=== PATIENT | female | born 1990 | race Caucasian/White ===

== ENCOUNTER 2022-08-28 19:17 | Inpatient (IN) ==
--- NOTE | 2022-08-28 20:38 | XRay Report ---
XR chest 1V portable HISTORY: 32 years-old Female Sepsis acute sepsis COMPARISON: None TECHNIQUE: Portable AP view of the chest FINDINGS: Cardiac silhouette is enlarged. Interstitial coarsening with ill-defined bilateral airspace opacities . No pneumothorax or pleural effusion. The bones appear normal. IMPRESSION: Bilateral mixed interstitial and alveolar opacities are suggestive of multifocal pneumoni a. ACT 112: Negative or not required by law. The above report was generated using voice recognition software. It may contain grammatical, syntax o r spelling errors. Electronically signed by: Tyrell Rios M.D. 08/28/2022 8:36 PM
[2022-08-28 20:50] LABS: Basophils # (auto) 0.01 K/uL (0-0.2); Basophils % (auto) 0.1 %; Eosinophils # (auto) 0.01 K/uL (0-0.50); Eosinophils % (auto) 0.1 %; Hematocrit (blood only) 29.1 % (34.1-44.9); Hemoglobin 9.7 g/dl (12.0-16.0); Immature Granulocytes # (auto) 0.04 K/uL (0.00-0.02); Immature Granulocytes % (auto) 0.5 %; Lymphocytes % (auto) 7.7 %; Mean Corpuscular Hemoglobin 26.6 pg (25.0-34.0); Mean Corpuscular Hgb Conc 33.3 g/dL (32.0-36.0); Mean Corpuscular Volume 79.9 fL (80.0-100.0); Monocytes # (auto) 0.42 K/uL (0.24-0.82); Monocytes % (auto) 5.4 %; Neutrophils # (auto) 6.67 K/uL (1.4-6.5); Neutrophils % (auto) 86.2 %; Platelet Count 278 K/uL (130-400); RDW Coefficient of Variation 14.6 % (11.5-14.5); RDW Standard Deviation 42.5 fL (36.4-46.3); Red Blood Count 3.64 M/uL (3.93-5.22); White Blood Count 7.75 K/ul (4.8-10.8)
[2022-08-28 21:01] LABS: INR 1.1 (0.9-1.1); Partial Thromboplastin Ratio 1.3; Partial Thromboplastin Time 36.9 Seconds (21.0-31.0); Prothrombin Time 11.4 Seconds (9.0-12.0)
[2022-08-28 21:15] LABS: Alanine Aminotransferase 141 U/L (7-52); Albumin Level 3.5 gm/dl (3.4-5.0); Alkaline Phosphatase 182 U/L (34-104); Anion Gap 9 (3-11); Aspartate Aminotransferase 149 U/L (13-39); Bilirubin,Total 0.9 mg/dl (0.2-1.0); Blood Urea Nitrogen 18 mg/dl (6-23); Calcium 8.8 mg/dl (8.5-10.1); Carbon Dioxide 25 mmol/L (21-32); Chloride 95 mmol/L (98-107); Est GFR (African American) 126.6 ml/min; Est GFR (Non-African American) 109.3 ml/min; Globulin 3.6 gm/dl (2.5-4.0); Glucose 120 mg/dl (70-99(Fasting)); Magnesium 1.9 mg/dl (1.7-2.4); Potassium 3.9 mmol/L (3.5-5.1); Sodium 129 mmol/L (136-145); Total Protein 7.1 gm/dl (6.0-8.3)
[2022-08-28 21:18] LABS: Troponin I High Sensitivity 17.7 pg/ml (0-14)
[2022-08-28 21:32] LABS: Influenza A virus by PCR Negative (Neg); Influenza B virus by PCR Negative (Neg); RSV by PCR Negative (Neg); SARS CoV2 RNA(COVID-19) InHosp NEGATIVE (Negative)
[2022-08-28] MEDS ORDERED: VANCOMYCIN HCL 2,000 MG in SODIUM CHLORIDE 0.9% 500 ML IV ONE (22:00)
[2022-08-28] MEDS ORDERED: CEFEPIME 2,000 MG/20 ML VIAL IV STA (22:00)
[2022-08-28] MEDS ORDERED: VANCOMYCIN CONSULT ACTIVE PRN (22:00)
--- NOTE | 2022-08-28 22:07 | Emergency Department Note ---
History of Present Illness General Chief complaint: Fever Stated complaint: Weakness Time Seen by Provider: 08/28/22 21:40 History of Present Illness Maximum Pain Intensity: 6 32-year-old female presents to the ED with a chief complaint of a fever. The patient states that she was admitted to [facility] in [place] about 2 weeks ago with a left leg infection and endocarditis. She states that she was there for about 5 days on IV antibiotics and then left AGAINST MEDICAL ADVICE as she states that they were not managing her pain. She does have a history of IV drug abuse and polysubstance abuse. The patient states that after this she went to a local detox facility in [facility] and then came down here today to be admitted for a longer term detox for 28 days at [facility]. On her intake there, she had a fever of 103. The patient was transferred here for further evaluation based on her recent history. The patient does complain of a little neck pain and left shoulder pain. She states that her left leg seems to be much better. Denies any respiratory complaints such as shortness of breath or cough. No urinary symptoms. No vomiting or diarrhea. Home Medications Medication Instructions Recorded Confirmed Type acetaminophen 500 mg capsule 1,000 mg PO Q8 PRN as directed 08/28/22 08/28/22 History (Mapap (acetaminophen)) buprenorphine 8 mg-naloxone 2 mg 1 film buccal TID 08/28/22 08/28/22 History sublingual film (Suboxone) clonidine HCl 0.1 mg tablet 0.1 mg PO TID PRN as directed 08/28/22 08/28/22 History diphenhydramine HCl 25 mg capsule 25 mg PO Q8 PRN as directed 08/28/22 08/28/22 History (Banophen) hydroxyzine HCl 25 mg tablet 25 mg PO TID PRN as directed 08/28/22 08/28/22 History multivitamin 1 tab PO DAILY 08/28/22 08/28/22 History naloxone 4 mg/actuation nasal spray 4 mg intranasal UD PRN over dose 08/28/22 08/28/22 History nicotine 21 mg/24 hr daily 21 mg transdermal UD 08/28/22 08/28/22 History transdermal patch Allergies Allergy/AdvReac Type Severity Reaction Status Date / Time No Known Allergies Allergy Unverified 08/28/22 22:06 Past Med/Surg History Medical History Endocarditis Polysubstance abuse Social History Smoking Status: Unknown if ever smoked Preferred Language: French Feels Safe at Home: Yes Review of Systems A total of 10 systems reviewed and were otherwise negative Physical Exam Vital Signs Vital Signs - 24 hr 08/28/22 19:24 08/28/22 21:48 Temperature 37.2 C 37 C Temperature Source Oral Oral Pulse Rate 97 H Pulse Rate [Finger] 84 Respiratory Rate 16 18 Respiratory Effort / Characteristics Non-Labored Spontaneous Respiratory Depth Normal Blood Pressure 111/65 Blood Pressure [Right Arm] 116/64 Blood Pressure Mean 80 Blood Pressure Mean [Right Arm] 81 Pulse Oximetry 97 99 Oxygen Delivery Method Room Air Room Air Sepsis Recent Fever Within 48 Hours Yes Sepsis New/Unexplained Change in Mental Status N/A Sepsis Action Taken by Nursing No Action Required CONSTITUTIONAL/VITAL SIGNS: Reviewed / noted above. GENERAL: Non-toxic in appearance. INTEGUMENTARY: Warm, dry, and [employer]. HEAD: Normocephalic. EYES: without scleral icterus or trauma. ENT/OROPHARYNX: clear and moist. LYMPHADENOPATHY/NECK: Is supple without lymphadenopathy or meningismus. RESPIRATORY: Clear to auscultation bilaterally. No increased work of breathing. CARDIOVASCULAR: Regular rate and rhythm. GI/ABDOMEN: Soft and nontender. No organomegaly or pulsatile mass. EXTREMITIES: Warm and well perfused. No obvious infection of the legs. BACK: No CVA tenderness. NEUROLOGICAL: Intact without focal deficits. PSYCHIATRIC: normal affect. MUSCULOSKELETAL: Normally developed with good muscle tone. TRIAGE NURSING DOCUMENTATION REVIEWED. Medical Decision Making Differential Diagnosis Differential includes viral illness, influenza, streptococcal pharyngitis, meningitis, pneumonia, sinusitis, UTI, pyelonephritis, otitis media, endocarditis. Medical Records Attestation: I reviewed the patient's medical records. Home Medications Current Medication List: was personally reviewed by me Laboratory Data Attestation: I reviewed the patient's lab results. Result diagrams: 08/28/22 20:37 08/28/22 20:37 Lab Results 08/28/22 08/28/22 08/28/22 Range/Units 20:37 20:37 20:37 WBC 7.75 (4.8-10.8) K/ul RBC 3.64 L (3.93-5.22) M/uL Hgb 9.7 L (12.0-16.0) g/dl Hct 29.1 L (34.1-44.9) % MCV 79.9 L (80.0-100.0) fL MCH 26.6 (25.0-34.0) pg MCHC 33.3 (32.0-36.0) g/dL RDW Std Deviation 42.5 (36.4-46.3) fL RDW Coeff of Memo 14.6 H (11.5-14.5) % Plt Count 278 (130-400) K/uL MPV 9.0 L (9.4-12.3) fL Immature Gran % (Auto) 0.5 % Neut % (Auto) 86.2 % Lymph % (Auto) 7.7 % Bath % (Auto) 5.4 % Eos % (Auto) 0.1 % Baso % (Auto) 0.1 % Neut # (Auto) 6.67 H (1.4-6.5) K/uL Lymph # (Auto) 0.60 L (1.2-3.4) K/uL Bath # (Auto) 0.42 (0.24-0.82) K/uL Eos # (Auto) 0.01 (0-0.50) K/uL Baso # (Auto) 0.01 (0-0.2) K/uL Immature Gran # (Auto) 0.04 H (0.00-0.02) K/uL PT 11.4 (9.0-12.0) Seconds INR 1.1 (0.9-1.1) APTT 36.9 H (21.0-31.0) Seconds PTT Ratio 1.3 Sodium 129 L (136-145) mmol/L Potassium 3.9 (3.5-5.1) mmol/L Chloride 95 L (98-107) mmol/L Carbon Dioxide 25 (21-32) mmol/L Anion Gap 9 (3-11) BUN 18 (6-23) mg/dl Creatinine 0.72 (0.6-1.2) mg/dl Est Cr Clr Drug Dosing Not Reportable Est GFR ( Amer) 126.6 ml/min Est GFR (Non-Af Amer) 109.3 ml/min BUN/Creatinine Ratio 25.0 H (10-20) Glucose 120 H (70-99(Fasting)) mg/dl Calcium 8.8 (8.5-10.1) mg/dl Magnesium 1.9 (1.7-2.4) mg/dl Total Bilirubin 0.9 (0.2-1.0) mg/dl AST 149 H (13-39) U/L ALT 141 H (7-52) U/L Alkaline Phosphatase 182 H (34-104) U/L Troponin I High Sens 17.7 H (0-14) pg/ml Total Protein 7.1 (6.0-8.3) gm/dl Albumin 3.5 (3.4-5.0) gm/dl Globulin 3.6 (2.5-4.0) gm/dl Albumin/Globulin Ratio 1.0 (0.9-2) Procalcitonin (0-0.5) ng/ml SARS-CoV-2 (PCR) (Negative) Influenza Type A (PCR) (Neg) Influenza Type B (PCR) (Neg) RSV (RT-PCR) (Neg) 08/28/22 08/28/22 Range/Units 20:37 20:37 WBC (4.8-10.8) K/ul RBC (3.93-5.22) M/uL Hgb (12.0-16.0) g/dl Hct (34.1-44.9) % MCV (80.0-100.0) fL MCH (25.0-34.0) pg MCHC (32.0-36.0) g/dL RDW Std Deviation (36.4-46.3) fL RDW Coeff of Memo (11.5-14.5) % Plt Count (130-400) K/uL MPV (9.4-12.3) fL Immature Gran % (Auto) % Neut % (Auto) % Lymph % (Auto) % Bath % (Auto) % Eos % (Auto) % Baso % (Auto) % Neut # (Auto) (1.4-6.5) K/uL Lymph # (Auto) (1.2-3.4) K/uL Bath # (Auto) (0.24-0.82) K/uL Eos # (Auto) (0-0.50) K/uL Baso # (Auto) (0-0.2) K/uL Immature Gran # (Auto) (0.00-0.02) K/uL PT (9.0-12.0) Seconds INR (0.9-1.1) APTT (21.0-31.0) Seconds PTT Ratio Sodium (136-145) mmol/L Potassium (3.5-5.1) mmol/L Chloride (98-107) mmol/L Carbon Dioxide (21-32) mmol/L Anion Gap (3-11) BUN (6-23) mg/dl Creatinine (0.6-1.2) mg/dl Est Cr Clr Drug Dosing Est GFR ( Amer) ml/min Est GFR (Non-Af Amer) ml/min BUN/Creatinine Ratio (10-20) Glucose (70-99(Fasting)) mg/dl Calcium (8.5-10.1) mg/dl Magnesium (1.7-2.4) mg/dl Total Bilirubin (0.2-1.0) mg/dl AST (13-39) U/L ALT (7-52) U/L Alkaline Phosphatase (34-104) U/L Troponin I High Sens (0-14) pg/ml Total Protein (6.0-8.3) gm/dl Albumin (3.4-5.0) gm/dl Globulin (2.5-4.0) gm/dl Albumin/Globulin Ratio (0.9-2) Procalcitonin 0.84 H (0-0.5) ng/ml SARS-CoV-2 (PCR) NEGATIVE (Negative) Influenza Type A (PCR) Negative (Neg) Influenza Type B (PCR) Negative (Neg) RSV (RT-PCR) Negative (Neg) Imaging Data Radiologist's Impression: Chest X-Ray 08/28/22 19:30 XR chest 1V portable HISTORY: 32 years-old Female Sepsis acute sepsis COMPARISON: None TECHNIQUE: Portable AP view of the chest FINDINGS: Cardiac silhouette is enlarged. Interstitial coarsening with ill-defined bilateral airspace opacities. No pneumothorax or pleural effusion. The bones appear normal. IMPRESSION: Bilateral mixed interstitial and alveolar opacities are suggestive of multifocal pneumonia. ACT 112: Negative or not required by law. The above report was generated using voice recognition software. It may contain grammatical, syntax or spelling errors. Electronically signed by: Tyrell Rios M.D. 08/28/2022 8:36 PM ECG Data Attestation: I personally reviewed and interpreted this ECG as follows: Additional Comments: Twelve-lead EKG: Per my interpretation shows a normal sinus rhythm at a rate of 87. No ST elevation. No PVCs. Normal QTC. MDM Narrative 32-year-old female presents to the ED with a chief complaint of a fever. The dat mcfadden was diagnosed with endocarditis a couple of weeks ago and only completed 5 days of inpatient treatment for this until she signed out AGAINST MEDICAL ADVICE. She came down to [facility] for drug rehab and during intake today she was found to have a fever 103. The patient reports that when she was in the hospital 2 weeks ago she had a left leg infection in addition to the endocarditis. The left leg infection seems to have cleared. She does have a history of IV drug abuse. Her hemoglobin today is 9.7. White blood cell count was normal. Sodium is 129. AST is 149. ALT is 141. Alkaline phosphatase is 182. Troponin is 17.7. Procalcitonin this point 084. EKG showed normal sinus rhythm. COVID and flu swab are negative. Chest x-ray shows multifocal pneumonia. The patient does not have any clinical findings to suggest a bilateral pneumonia and her lungs sound clear and her oxygen saturations are normal. She is afebrile here but was reportedly febrile just hours ago at [facility]. Because of the patient's history and elevated troponin and chest x-ray findings, she was empirically treated with IV cefepime, IV vancomycin and some IV fluids. She will be seen by the hospitalist for further evaluation and care. I did asked the office secretary to obtain records from [facility]. Impression & Plan Bilateral pneumonia, Elevated troponin, Fever Discharge Plan Visit Data Chief Complaint: Fever Stated Complaint: Weakness ED Provider: Martín Broussard Discharge Problem: Bilateral pneumonia, Elevated troponin, Fever Patient Disposition: Being Evaluated by Hospitalist Forms Stand Alone Forms: My [facility] Prescriptions Prescriptions: No Action multivitamin Tablet 1 tab PO DAILY clonidine HCl 0.1 mg tablet 0.1 mg PO TID PRN (Reason: as directed) diphenhydramine HCl [Banophen] 25 mg capsule 25 mg PO Q8 PRN (Reason: as directed) hydroxyzine HCl 25 mg tablet 25 mg PO TID PRN (Reason: as directed) acetaminophen [Mapap (acetaminophen)] 500 mg capsule 1,000 mg PO Q8 PRN (Reason: as directed) nicotine 21 mg/24 hr patch 24 hour 21 mg transdermal UD naloxone 4 mg/actuation spray,non-aerosol 4 mg INTRANASAL UD PRN (Reason: over dose) buprenorphine-naloxone [Suboxone] 8-2 mg Film 1 film BUCCAL TID Referrals Referrals: PCP,NO [Primary Care Provider] -
[2022-08-28] MEDS ORDERED: SODIUM CHLORIDE 0.9% 1000ML 1,000 ML IV ONE (22:10)
[2022-08-28] MEDS ORDERED: GI COCKTAIL ED USE PO ONE (22:35)
[2022-08-28 22:54] LABS: Appearance Urine Clear (Clear); Bilirubin Urine Negative (Negative); Blood Urine 2+ (Negative); Color Urine Yellow; Glucose Urine UA Negative (Negative); Ketones Urine Negative (Negative); Leukocyte Esterase Urine Trace (Negative); Nitrite Urine Negative (Negative); Protein Urine Negative (Negative); Specific Gravity Urine 1.005 (1.000-1.030); Urobilinogen Urine Negative (Negative)
[2022-08-28 23:49] LABS: Bacteria Urine Automated Negative (Negative); Cast Urine Automated 0 /lpf (0-5); Epithelial Cell Urine Auto 20-30 /lpf (0-5); RBC Urine Automated 0-4 /hpf (0-4); WBC Urine Automated 0 /hpf (0-5)
[2022-08-29 00:01] LABS: Reticulocyte % 1.4 % (0.5-2.0); Reticulocytes # 0.05 10^6/uL (0.02-0.10)
[2022-08-29] MEDS ORDERED: IOVERSOL 350 MG 100mL Prefilled Syringe IV ONE (00:30)
[2022-08-29 00:53] LABS: Ferritin 96.5 ng/ml (8-388)
[2022-08-29 00:58] LABS: Folate (Folic Acid) 16.72 ng/ml (>5.38)
--- NOTE | 2022-08-29 01:00 | History & Physical Report ---
Date of Service August 29, 2022 Assessment & Plan (1) Hyponatremia: Plan: Unknown duration Left lower leg swelling possible abscess History IVDU currently on Suboxone History "endocarditis" status post partial treatment at [facility] a few weeks ago No overt sepsis for now Rule out DVT Multifocal pneumonia on CXR without cough symptoms Possibly septic emboli Transaminitis without abdominal pain complaints. Anemia, unknown duration Headache symptoms rule out brain abscess Given IVDU/endocarditis history Medical telemetry Careful correction of sodium Hyponatremia work-up CS, Vancomycin, Cefepime Orthopedics consult Re: LLE abscess N.p.o. until patient seen by Orthopedics in anticipation of procedure LLE venous Dopplers rule out DVT Anemia work-up, transfuse RBC if hemoglobin less than 7 and or from symptomatic anemia MRI brain Re: Headache Follow LFTs, liver ultrasound if with progression Retrieve records from [place], [place] DVT prophylaxis. Lovenox subcu Full code Text document was generated using [employer] voice recognition software. It may contain grammatical or spelling errors. Kindly contact undersigned for clarification of any documentation item in question. History of Present Illness Chief Complaint: Fever Primary Care Provider: NO PCP History obtained from patient and records. Medical history significant for opiate abuse currently on Suboxone. Patient is a resident of [place], [place] arrived in town yesterday for long-term detox at [facility]. Last month, patient noted fever, chills, nausea, left leg swelling. Patient consulted local ER at [place], [place]. Patient transferred to [facility] for management of left leg infection. Patient was told she also had endocarditis. Patient signed out AGAINST MEDICAL ADVICE after 5 days of confinement because her pain was not being managed well and she had started to detox. Patient later checked herself to a local detox facility in [place]. She was transferred to the local [facility] for addiction yesterday for long-term detox. Patient noted to be febrile upon arrival at facility. Patient denies chest pain, SOB, cough symptoms. No abdominal pain, no diarrhea, dysuria symptoms. Denies black/bloody stools. Patient admits to heavy menses. Patient with achy headache and left shoulder pain the last 2 days. Poor appetite. Patient denies alcohol abuse. Tolerable left lower leg discomfort. Patient sent to the ER for evaluation. Patient received IV Vancomycin and Cefepime at the ER. Medical History as above Surgical History : Cholecystectomy Family History : DM, heart disease Personal/Social history : Non-smoker, no EtOH intake, unemployed Allergies Allergy/AdvReac Type Severity Reaction Status Date / Time No Known Allergies Allergy Unverified 08/28/22 22:06 Home Medications Medication Instructions Recorded Confirmed Type acetaminophen 500 mg capsule 1,000 mg PO Q8 PRN as directed 08/28/22 08/28/22 History (Mapap (acetaminophen)) buprenorphine 8 mg-naloxone 2 mg 1 film buccal TID 08/28/22 08/28/22 History sublingual film (Suboxone) clonidine HCl 0.1 mg tablet 0.1 mg PO TID PRN as directed 08/28/22 08/28/22 History diphenhydramine HCl 25 mg capsule 25 mg PO Q8 PRN as directed 08/28/22 08/28/22 History (Banophen) hydroxyzine HCl 25 mg tablet 25 mg PO TID PRN as directed 08/28/22 08/28/22 History multivitamin 1 tab PO DAILY 08/28/22 08/28/22 History naloxone 4 mg/actuation nasal spray 4 mg intranasal UD PRN over dose 08/28/22 08/28/22 History nicotine 21 mg/24 hr daily 21 mg transdermal UD 08/28/22 08/28/22 History transdermal patch Past Med/Surg History Medical History Endocarditis Polysubstance abuse Social History Smoking Status: Former smoker Smoking End Date: 1 week ago; Hx Alcohol Use: Yes (last drink a year ago) Hx Substance Use: Yes Last Used Substance: Days (ago) Last Used Substance Other:: 08/24/2022 Substance Use Type Other:: fentanyl Preferred Language: American Communication Ability: Effective Business Operations Analyst Required: No Beliefs That Will Affect Care: None Current Living Situation: Homeless Other Information That Helps Us Care for You: No Feels Safe at Home: Yes Safety Concerns: Feels Safe At This Time Assistive Devices: None Review of Systems Review of Systems: As per HPI, all other systems reviewed and negative Physical Exam Physical Exam: GENERAL: Slight uncomfortable, no respiratory distress SKIN: Pallor, warm HEENT: Bespectacled, pale palpebral conjunctivae, no ptosis, dry buccal mucosa NECK : Supple, no tenderness CHEST : CTA, no tenderness HEART : RRR, no obvious murmurs ABDOMEN: Some distention, nontender EXTREMITIES : LLE swelling, no tenderness, no other conspicuous deformities noted NEUROLOGIC : Coherent, no facial asymmetry, no other gross focality Results & Data Results & Data ([facility]) Vital Signs (Past 12 Hours) Vital Signs Temp Pulse Pulse Resp BP BP Pulse Ox 08/28/22 21:48 37 C 84 18 116/64 99 08/28/22 19:24 37.2 C 97 H 16 111/65 97 O2 Del Method 08/28/22 21:48 Room Air 08/28/22 19:24 Room Air Laboratory Results Laboratory Results WBC 7.75 K/ul (4.8-10.8) 08/28/22 20:37 RBC 3.64 M/uL (3.93-5.22) L 08/28/22 20:37 Hgb 9.7 g/dl (12.0-16.0) L 08/28/22 20:37 Hct 29.1 % (34.1-44.9) L 08/28/22 20:37 MCV 79.9 fL (80.0-100.0) L 08/28/22 20:37 MCH 26.6 pg (25.0-34.0) 08/28/22 20:37 MCHC 33.3 g/dL (32.0-36.0) 08/28/22 20:37 RDW Std Deviation 42.5 fL (36.4-46.3) 08/28/22 20:37 RDW Coeff of Memo 14.6 % (11.5-14.5) H 08/28/22 20:37 Plt Count 278 K/uL (130-400) 08/28/22 20:37 MPV 9.0 fL (9.4-12.3) L 08/28/22 20:37 Immature Gran % (Auto) 0.5 % 08/28/22 20:37 Neut % (Auto) 86.2 % 08/28/22 20:37 Lymph % (Auto) 7.7 % 08/28/22 20:37 [place] % (Auto) 5.4 % 08/28/22 20:37 Eos % (Auto) 0.1 % 08/28/22 20:37 Baso % (Auto) 0.1 % 08/28/22 20:37 Reticulocyte % (Auto) 1.4 % (0.5-2.0) 08/28/22 23:41 Neut # (Auto) 6.67 K/uL (1.4-6.5) H 08/28/22 20:37 Lymph # (Auto) 0.60 K/uL (1.2-3.4) L 08/28/22 20:37 [place] # (Auto) 0.42 K/uL (0.24-0.82) 08/28/22 20:37 Eos # (Auto) 0.01 K/uL (0-0.50) 08/28/22 20:37 Baso # (Auto) 0.01 K/uL (0-0.2) 08/28/22 20:37 Reticulocyte # 0.05 10^6/uL (0.02-0.10) 08/28/22 23:41 Immature Gran # (Auto) 0.04 K/uL (0.00-0.02) H 08/28/22 20:37 PT 11.4 Seconds (9.0-12.0) 08/28/22 20:37 INR 1.1 (0.9-1.1) 08/28/22 20:37 APTT 36.9 Seconds (21.0-31.0) H 08/28/22 20:37 PTT Ratio 1.3 08/28/22 20:37 Sodium 129 mmol/L (136-145) L 08/28/22 20:37 Potassium 3.9 mmol/L (3.5-5.1) 08/28/22 20:37 Chloride 95 mmol/L (98-107) L 08/28/22 20:37 Carbon Dioxide 25 mmol/L (21-32) 08/28/22 20:37 Anion Gap 9 (3-11) 08/28/22 20:37 BUN 18 mg/dl (6-23) 08/28/22 20:37 Creatinine 0.72 mg/dl (0.6-1.2) 08/28/22 20:37 Est Cr Clr Drug Dosing Not Reportable 08/28/22 20:37 Est GFR ( Amer) 126.6 ml/min 08/28/22 20:37 Est GFR (Non-Af Amer) 109.3 ml/min 08/28/22 20:37 BUN/Creatinine Ratio 25.0 (10-20) H 08/28/22 20:37 Glucose 120 mg/dl (70-99(Fasting)) H 08/28/22 20:37 Osmolality 271 mOsm/kg (280-300) L 08/28/22 20:43 Calcium 8.8 mg/dl (8.5-10.1) 08/28/22 20:37 Magnesium 1.9 mg/dl (1.7-2.4) 08/28/22 20:37 Iron 13 mcg/dl (35-150) L 08/28/22 23:41 Transferrin 267 mg/dl (200-360) 08/28/22 23:41 Ferritin 96.5 ng/ml (8-388) 08/28/22 23:41 Total Bilirubin 0.9 mg/dl (0.2-1.0) 08/28/22 20:37 AST 149 U/L (13-39) H 08/28/22 20:37 ALT 141 U/L (7-52) H 08/28/22 20:37 Alkaline Phosphatase 182 U/L (34-104) H 08/28/22 20:37 Troponin I High Sens 17.7 pg/ml (0-14) H 08/28/22 20:37 Total Protein 7.1 gm/dl (6.0-8.3) 08/28/22 20:37 Albumin 3.5 gm/dl (3.4-5.0) 08/28/22 20:37 Globulin 3.6 gm/dl (2.5-4.0) 08/28/22 20:37 Albumin/Globulin Ratio 1.0 (0.9-2) 08/28/22 20:37 Lipase 28 U/L (11-82) 08/28/22 20:43 Procalcitonin 0.84 ng/ml (0-0.5) H 08/28/22 20:37 TSH 1.103 uIu/ml (0.300-4.500) 08/28/22 23:41 Urine Color Yellow 08/28/22 22:36 Urine Appearance Clear (Clear) 08/28/22 22:36 Urine pH 6.0 (4.5-7.5) 08/28/22 22:36 Ur Specific Cunningham 1.005 (1.000-1.030) 08/28/22 22:36 Urine Protein Negative (Negative) 08/28/22 22:36 Urine Glucose (UA) Negative (Negative) 08/28/22 22:36 Urine Ketones Negative (Negative) 08/28/22 22:36 Urine Blood 2+ (Negative) H 08/28/22 22:36 Urine Nitrite Negative (Negative) 08/28/22 22:36 Urine Bilirubin Negative (Negative) 08/28/22 22:36 Urine Urobilinogen Negative (Negative) 08/28/22 22:36 Ur Leukocyte Esterase Trace (Negative) H 08/28/22 22:36 Urine WBC (Auto) 0 /hpf (0-5) 08/28/22 22:36 Urine RBC (Auto) 0-4 /hpf (0-4) 08/28/22 22:36 U Hyaline Cast (Auto) 0 /lpf (0-5) 08/28/22 22:36 U Epithel Cells (Auto) 20-30 /lpf (0-5) H 08/28/22 22:36 Urine Bacteria (Auto) Negative (Negative) 08/28/22 22:36 Ethyl Alcohol mg/dL < 10.0 mg/dl (<10.0) 08/28/22 23:41 SARS-CoV-2 (PCR) NEGATIVE (Negative) 08/28/22 20:37 Influenza Type A (PCR) Negative (Neg) 08/28/22 20:37 Influenza Type B (PCR) Negative (Neg) 08/28/22 20:37 RSV (RT-PCR) Negative (Neg) 08/28/22 20:37 Impressions Chest X-Ray 08/28/22 19:30 XR chest 1V portable HISTORY: 32 years-old Female Sepsis acute sepsis COMPARISON: None TECHNIQUE: Portable AP view of the chest FINDINGS: Cardiac silhouette is enlarged. Interstitial coarsening with ill-defined bilateral airspace opacities. No pneumothorax or pleural effusion. The bones appear normal. IMPRESSION: Bilateral mixed interstitial and alveolar opacities are suggestive of multifocal pneumonia. ACT 112: Negative or not required by law. The above report was generated using voice recognition software. It may contain grammatical, syntax or spelling errors. Electronically signed by: Tyrell Rios M.D. 08/28/2022 8:[address] head initial read: No intracranial hemorrhage, abnormal intra- or extra-axial collections or parenchymal lesions are seen. The shape and configuration of the cortical sulci, basal cisterns and ventricles are within normal limits. The moncada-white differentiation is preserved. No evidence of mass effect, midline shift, or edema. The osseous structures are unremarkable. The visualized portions of the paranasal sinuses are clear. IMPRESSION:Normal non-contrast CT scan of the head. CT left tibia-fibula initial read: Pretibial thick-walled fluid collection suspicious for abscess measures 2 x 0.8 cmin transverse plane. More extensive fattystranding noted in a pretibial location which mayreflect associated cellulitis. If this reflects a posttraumatic process a traumatic contusion should also be considered. No evidence for fracture Being predominantlyat the medial anterior tibial surface, there is no involvement of the laterally located anterior tibial muscular compartmen EKG as per my interpretation :Rate 85, NSR, normal axis, no ischemia
[2022-08-29] MEDS ORDERED: BUPRENORPHINE/NALOXONE 8/2 MG TAB SL STA (01:40)
[2022-08-29] MEDS ORDERED: GADOBUTROL 65ML VIAL IV ONE (02:40)
[2022-08-29] MEDS: ACETAMINOPHEN 325 MG TAB PO PRN ×4 (03:40→21:36)
[2022-08-29] MEDS: BUPRENORPHINE/NALOXONE 8/2 MG TAB SL SCH ×3 (04:20→21:31)
[2022-08-29] MEDS ORDERED: SODIUM CHLORIDE 0.9% 500 ML IV ONE (05:11)
[2022-08-29] MEDS ORDERED: POTASSIUM CHLORIDE CRTAB 20 MEQ TABCR PO STA (05:13)
[2022-08-29] MEDS ORDERED: MAGNESIUM SULFATE / D5W 1 GM/100 ML BAG IV ONE (05:13)
[2022-08-29] MEDS: CEFEPIME 2,000 MG in SYRINGE 0 ML IV SCH ×3 (05:42→21:31)
[2022-08-29] MEDS: VANCOMYCIN HCL 1,000 MG in SODIUM CHLORIDE 0.9% 250 ML IV SCH ×3 (05:57→23:31)
[2022-08-29 06:50] LABS: Basophils # (auto) 0.01 K/uL (0-0.2); Basophils % (auto) 0.2 %; Hematocrit (blood only) 24.7 % (34.1-44.9); Hemoglobin 8.3 g/dl (12.0-16.0); Immature Granulocytes # (auto) 0.08 K/uL (0.00-0.02); Immature Granulocytes % (auto) 1.4 %; Lymphocytes # (auto) 0.63 K/uL (1.2-3.4); Lymphocytes % (auto) 10.8 %; Mean Corpuscular Hemoglobin 26.3 pg (25.0-34.0); Mean Corpuscular Hgb Conc 33.6 g/dL (32.0-36.0); Mean Corpuscular Volume 78.4 fL (80.0-100.0); Mean Platelet Volume 9.1 fL (9.4-12.3); Monocytes # (auto) 0.65 K/uL (0.24-0.82); Monocytes % (auto) 11.1 %; Neutrophils # (auto) 4.48 K/uL (1.4-6.5); Neutrophils % (auto) 76.5 %; Platelet Count 202 K/uL (130-400); RDW Coefficient of Variation 14.6 % (11.5-14.5); RDW Standard Deviation 42.2 fL (36.4-46.3); Red Blood Count 3.15 M/uL (3.93-5.22); White Blood Count 5.85 K/ul (4.8-10.8)
--- NOTE | 2022-08-29 07:06 | Ultrasound Report ---
US venous doppler LE BI CLINICAL HISTORY: LLE swelling TECHNIQUE: Bilateral lower extremity real-time compression venous ultrasound with Color Doppler imagi ng. Utilizing real-time ultrasonic imaging multiple real time high-resolution ultrasonic images with compression and noncompression maneuvers of the deep venous system in addition to color doppler imagi ng were performed from the common femoral vein through the proximal calf veins. COMPARISON: None available at the time of this dictation. FINDINGS: Currently there is normal compressibility of the deep venous system from the common femoral vein thro ugh the proximal calf veins. No superficial venous thrombosis is identified. Impression: No evidence of deep venous thrombus. ACT 112: Negative or not required by law. Electronically signed by: Brad Melendez M.D. 08/29/2022 7:05 AM
[2022-08-29 07:14] LABS: Estimated Average Glucose 108 mg/dl; Hemoglobin A1C 5.4 % (4.5-5.6)
[2022-08-29] MEDS: MULTIVITAMIN TAB PO SCH (07:15)
[2022-08-29] MEDS: LACTATED RINGER'S 1,000 ML IV SCH ×2 (07:19→19:46)
--- NOTE | 2022-08-29 07:38 | XRay Report ---
XR shoulder LT min 2V routine CLINICAL HISTORY: Left shoulder pain. No recent trauma. COMPARISON: None FINDINGS: Incidental note is made of airspace opacities within the left lung. These were noted on pr ior chest radiograph. Alignment of the left shoulder is anatomic. There is no acute fracture. No susp icious osseous lesion. There is mild acromioclavicular joint osteoarthritis. IMPRESSION: 1. No acute fracture or dislocation within the left shoulder. 2. Mild left acromioclavicular joint osteoarthritis. 3. Left lung airspace opacities which favor an infectious process. ACT 112: Negative or not required by law. Electronically signed by: Berto Garcia M.D. 08/29/2022 7:36 AM
[2022-08-29 07:49] LABS: Albumin Globulin Ratio 0.9 (0.9-2); BUN Creatinine Ratio 25.9 (10-20); Bilirubin,Total 1.1 mg/dl (0.2-1.0); Calcium 7.9 mg/dl (8.5-10.1); Creatinine Clr Calc Pharmacy 158.6 ml/min; Est GFR (African American) 142.7 ml/min; Est GFR (Non-African American) 123.1 ml/min; Globulin 3.2 gm/dl (2.5-4.0); Potassium 3.7 mmol/L (3.5-5.1); Total Protein 6.2 gm/dl (6.0-8.3)
--- NOTE | 2022-08-29 07:56 | CT Scan Report ---
CT OF THE HEAD WITHOUT CONTRAST CLINICAL HISTORY: Headache. COMPARISON STUDY: No previous studies for comparison. CT DOSE: 537.48 mGy.cm TECHNIQUE: Helical axial images of the head were obtained without IV contrast. Automated exposure con trol was utilized for the study. A dose lowering technique was utilized adhering to the principles o f ALARA. FINDINGS: No acute intracranial hemorrhage, midline shift or mass effect is present. The ventricular system is unremarkable. The basal cisterns are patent. No extra-axial collections are present. There are no findings to suggest acute dural sinus thrombosis or acute territorial infarct. No significant calvarial abnormalities are present. Visualized portions of the sinuses and mastoid air cells are bill ar. IMPRESSION: No acute intracranial findings. ACT 112: Negative or not required by law. Electronically signed by: Berto Garcia M.D. 08/29/2022 7:54 AM
[2022-08-29 08:12] LABS: A calco-baum cmplx NotReported Not Detected (NotDetected); Bact fragilis Not Reported Not Detected (NotDetected); C auris Not Reported Not Detected (NotDetected); Calbicans Not Reported Not Detected (NotDetected); Candida glabrata Not Reported Not Detected (NotDetected); Candida krusei Not Reported Not Detected (NotDetected); Cneoformans/gatti Not Reported Not Detected (NotDetected); Cparapsilosis Not Reported Not Detected (NotDetected); Ctropicalis Not Reported Not Detected (NotDetected); E cloacae compx Not Reported Not Detected (NotDetected); Efaecalis Not Reported Not Detected (NotDetected); Efaecium Not Reported Not Detected (NotDetected); Enterobacterales Not Reported Not Detected (NotDetected); Escherichia coli Not Reported Not Detected (NotDetected); H influenzae Not Reported Not Detected (NotDetected); K aerogenes Not Reported Not Detected (NotDetected); Koxytoca Not Reported Not Detected (NotDetected); Kpneumoniae grp Not Reported Not Detected (NotDetected); Lmonocyt Not Reported Not Detected (NotDetected); N meningitidis Not Reported Not Detected (NotDetected); P aeruginosa Not Reported Not Detected (NotDetected); Proteus spp Not Reported Not Detected (NotDetected); Salmonella spp Not Reported Not Detected (NotDetected); Smarcescens Not Reported Not Detected (NotDetected); Staph lugdunensis Not Reported Not Detected (NotDetected); Staph spp. Not Reported DETECTED (NotDetected); Staphaureus Not Reported DETECTED (NotDetected); Staphepi Not Reported Not Detected (NotDetected); Staphylococcus spp. DETECTED (NotDetected); Stenmaltophilia Not Reported Not Detected (NotDetected); Strep agal(GrpB) Not Reported Not Detected (NotDetected); Strep pneum Not Reported Not Detected (NotDetected); Strep pyog (GrpA) Not Reported Not Detected (NotDetected); Strep spp Not Reported Not Detected (NotDetected); mecAC+MREJ Resistant Gene MRSA Not Detected (NotDetected)
--- NOTE | 2022-08-29 08:27 | Pharmacy Report ---
Pharmacy PK ABX Note - Date of Service August 29, 2022 - Assessment and Plan Assessment 32 year old F receiving IV vancomycin and cefepime for treatment of skin and soft tissue infection. Blood cultures pending. Renal function stable Day # 1 of antimicrobial therapy. Plan Vancomycin * Loading dose: 2000 mg IV x 1 * Maintenance dose: 1000 mg IV every 8 hours * Regimen is predicted to achieve target AUC/LISSETTE of 400-600 mg/L.hr * Trough ordered for 08/30 AM Pharmacy will continue to follow and will adjust dose/frequency as necessary. Thank you. Pharmacy has transitioned to AUC monitoring for vancomycin. AUC/LISSETTE is the preferred PK/PD target and is associated with decreased risk of nephrotoxicity compared to traditional trough targets.
--- NOTE | 2022-08-29 08:45 | CT Scan Report ---
CT tib/fib LT w con CLINICAL HISTORY: LLE lump/pain TECHNIQUE: Multidetector row helical CT of the left tibia and fibula was performed without intravenou s contrast. Coronal and sagittal reformations were obtained. Automated dose lowering techniques and/o r adjustment according to patient size were utilized for this examination. CT DOSE: 399.37 mGy.cm Comparison: None available at the time of this dictation. FINDINGS: There is a rim-enhancing soft tissue collection in the anterior tibia measuring 2.0 x 0.8 cm with tim rounding fatty stranding. The joint spaces are maintained. No fracture is seen. Mild soft tissue stra nding is seen in the distal tibia. IMPRESSION: Findings are concerning for abscess versus less likely hematoma in the anterior proximal leg. Diffuse soft tissue stranding is nonspecific but may possibly represent cellulitis. Correlation with physica l exam is recommended. The bones are intact. ACT 112: Negative or not required by law. Electronically signed by: Brad Melendez M.D. 08/29/2022 8:43 AM
[2022-08-29] MEDS ORDERED: ENOXAPARIN INJ 40 MG/0.4 ML SYR SQ SCH (09:00)
--- NOTE | 2022-08-29 09:01 | Magnetic Resonance Report ---
MR brain wo/w con CLINICAL HISTORY: hobbs TECHNIQUE: Multiplanar and multisequence MR images of the brain were obtained prior to and following administration of gadolinium contrast. Comparison: Comparison is made to CT head 08/28/2022 FINDINGS: There are a few punctate foci of restricted diffusion in the left parietal lobe compatible with acute infarcts. The white matter is unremarkable. The ventricular system is normal in appearance. No mass or abnormal enhancement is seen. There is no mass effect or midline shift. There is no evidence of ac agdaagux intraparenchymal hemorrhage. No extra axial fluid collections are seen. The corpus callosum, pitu itary gland, and cerebellar tonsils appear grossly unremarkable. Flow voids of the major intracranial arterial vessels are identified. The imaged portions of the para nasal sinuses, mastoid air cells, and orbits are unremarkable. IMPRESSION: Punctate foci of restricted diffusion left parietal lobe compatible with acute subcortical infarcts. No evidence of hemorrhage. ACT 112: Negative or not required by law. Electronically signed by: Brad Melendez M.D. 08/29/2022 8:59 AM
[2022-08-29] MEDS ORDERED: PHARMACIST DISCHARGE MED REC CONSULT PRN (09:22)
[2022-08-29] MEDS: FERROUS SULFATE 325 MG TAB PO SCH (09:30)
--- NOTE | 2022-08-29 12:12 | Cardiology Consultation ---
Date of Consultation August 29, 2022 Assessment & Plan (1) Endocarditis: Plan Patient is an acutely ill 32-year-old female recently diagnosed with endocarditis with incomplete treatment who presents with symptoms of systemic emboli, pulmonary venous and arterial. Chest x-ray consistent with septic emboli, peripheral abscess left leg, subacute stroke on MRI. Positive blood cultures for gram-positive cocci. Patient appropriately treated with IV antibiotics. 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 Valvular structures appeared initially competent Recommendations: Would recommend tertiary care evaluation. Will need [facility]A to fully assess and records obtained from initial hospitalization History of Present Illness Reason for Consultation: Endocarditis Requesting Physician: Dr. Rivas Attending Physician: Rory Rivas MD History of Present Illness Information obtained from discussion with patient and review of records. Patient is a 32-year-old female with history of IV narcotic and polysubstance abuse with history as per outlined on admission H&P (Dr. Mcfadden) and confirmed by patient Last month, patient noted fever, chills, nausea, left leg swelling. Patient consulted local ER at [place], [place]. Patient transferred to [facility] for management of left leg infection. Patient was told she also had endocarditis. Patient signed out AGAINST MEDICAL ADVICE after 5 days of confinement because her pain was not being managed well and she had started to detox. Patient later checked herself to a local detox facility in [place]. She was [facility] for [facility] yesterday for long-term detox. On arrival to facility patient appeared ill and febrile with complaints of leg pain Since admission blood cultures have returned positive for gram-positive cocci. CT of leg suspicious for abscess Chest x-ray with concerning for septic emboli MRI head reflect subacute stroke Echocardiogram done urgently demonstrates multi valvular endocarditis, tricuspid valve, mitral valve with possible myocardial seeding. Aortic valve not excluded valves appear competent Allergies Allergy/AdvReac Type Severity Reaction Status Date / Time No Known Allergies Allergy Unverified 08/28/22 22:06 Home Medications Medication Instructions Recorded Confirmed Type acetaminophen 500 mg capsule 1,000 mg PO Q8 PRN as directed 08/28/22 08/28/22 History (Mapap (acetaminophen)) buprenorphine 8 mg-naloxone 2 mg 1 film buccal TID 08/28/22 08/28/22 History sublingual film (Suboxone) clonidine HCl 0.1 mg tablet 0.1 mg PO TID PRN as directed 08/28/22 08/28/22 History diphenhydramine HCl 25 mg capsule 25 mg PO Q8 PRN as directed 08/28/22 08/28/22 History (Banophen) hydroxyzine HCl 25 mg tablet 25 mg PO TID PRN as directed 08/28/22 08/28/22 History multivitamin 1 tab PO DAILY 08/28/22 08/28/22 History naloxone 4 mg/actuation nasal spray 4 mg intranasal UD PRN over dose 08/28/22 08/28/22 History nicotine 21 mg/24 hr daily 21 mg transdermal UD 08/28/22 08/28/22 History transdermal patch Patient History Medical History Endocarditis Polysubstance abuse Social History Smoking Status: Former smoker Smoking End Date: 1 week ago; Hx Alcohol Use: Yes (last drink a year ago) Hx Substance Use: Yes Last Used Substance: Days (ago) Last Used Substance Oth er:: 08/24/2022 Substance Use Type Other:: fentanyl Preferred Language: Belarusian Communication Ability: Effective [employer]work [employer] Required: No Beliefs That Will Affect Care: None Current Living Situation: Homeless Other Information That Helps Us Care for You: No Feels Safe at Home: Yes Safety Concerns: Feels Safe At This Time Assistive Devices: None Review of Systems Review of Systems: All systems reviewed & are unremarkable except as noted in HPI & below Physical Exam Constitutional: + ill appearing Complaining of diffuse pain Eyes: PERRL, conjunctivae normal, anicteric sclerae ENMT: external ear and nose normal, oropharynx normal Neck: trachea midline, no thyromegaly Gastrointestinal (Abdomen): Inspection/Auscultation: abdomen not distended Percussion/Palpation: + abdomen tender (Mild tenderness without guarding) and abdomen soft Musculoskeletal: Left leg mildly enlarged and tender to palpation Neurologic: PERRL, EOMI, accommodation nl, no face palsy, no dysarthria Results & Data ([facility]) Vital Signs (Past 12 Hours) Vital Signs Temp Pulse Pulse Resp BP Pulse Ox O2 Del Method 08/29/22 12:03 38.5 C H 97 H 16 128/75 94 Room Air 08/29/22 08:01 37.1 C 96 H 16 106/70 97 Room Air 08/29/22 07:07 101 H 08/29/22 04:23 39.1 C H 111 H 18 111/68 94 Room Air 08/29/22 03:11 105 H 08/29/22 03:13 39.5 C H 92 H 18 123/76 96 08/29/22 02:19 72 20 99 Room Air Laboratory Results Laboratory Results - last 24 hr 08/28/22 08/28/22 08/28/22 20:37 20:37 20:37 WBC 7.75 RBC 3.64 L Hgb 9.7 L Hct 29.1 L MCV 79.9 L MCH 26.6 MCHC 33.3 RDW Std Deviation 42.5 RDW Coeff of Memo 14.6 H Plt Count 278 MPV 9.0 L Immature Gran % (Auto) 0.5 Neut % (Auto) 86.2 Lymph % (Auto) 7.7 [place] % (Auto) 5.4 Eos % (Auto) 0.1 Baso % (Auto) 0.1 Reticulocyte % (Auto) Neut # (Auto) 6.67 H Lymph # (Auto) 0.60 L [place] # (Auto) 0.42 Eos # (Auto) 0.01 Baso # (Auto) 0.01 Reticulocyte # Immature Gran # (Auto) 0.04 H PT 11.4 INR 1.1 APTT 36.9 H PTT Ratio 1.3 Sodium 129 L Potassium 3.9 Chloride 95 L Carbon Dioxide 25 Anion Gap 9 BUN 18 Creatinine 0.72 Est Cr Clr Drug Dosing Not Reportable Est GFR ( Amer) 126.6 Est GFR (Non-Af Amer) 109.3 BUN/Creatinine Ratio 25.0 H Glucose 120 H Estimat Average Glucose Hemoglobin A1c Osmolality Calcium 8.8 Magnesium 1.9 Iron Transferrin Ferritin Total Bilirubin 0.9 AST 149 H ALT 141 H Alkaline Phosphatase 182 H Troponin I High Sens 17.7 H Total Protein 7.1 Albumin 3.5 Globulin 3.6 Albumin/Globulin Ratio 1.0 Lipase Vitamin B12 Folate Procalcitonin TSH Urine Color Urine Appearance Urine pH Ur Specific [place] Urine Protein Urine Glucose (UA) Urine Ketones Urine Blood Urine Nitrite Urine Bilirubin Urine Urobilinogen Ur Leukocyte Esterase Urine WBC (Auto) Urine RBC (Auto) U Hyaline Cast (Auto) U Epithel Cells (Auto) Urine Bacteria (Auto) Ethyl Alcohol mg/dL SARS-CoV-2 (PCR) Influenza Type A (PCR) Influenza Type B (PCR) RSV (RT-PCR) Staphylococcus sp PCR Staph aureus (PCR) mecA/C & MREJ Resist Gene Bld Cult ID Panel PCR 08/28/22 08/28/22 08/28/22 20:37 20:37 20:37 WBC RBC Hgb Hct MCV MCH MCHC RDW Std Deviation RDW Coeff of Memo Plt Count MPV Immature Gran % (Auto) Neut % (Auto) Lymph % (Auto) [place] % (Auto) Eos % (Auto) Baso % (Auto) Reticulocyte % (Auto) Neut # (Auto) Lymph # (Auto) [place] # (Auto) Eos # (Auto) Baso # (Auto) Reticulocyte # Immature Gran # (Auto) PT INR APTT PTT Ratio Sodium Potassium Chloride Carbon Dioxide Anion Gap BUN Creatinine Est Cr Clr Drug Dosing Est GFR ( Amer) Est GFR (Non-Af Amer) BUN/Creatinine Ratio Glucose Estimat Average Glucose Hemoglobin A1c Osmolality Calcium Magnesium Iron Transferrin Ferritin Total Bilirubin AST ALT Alkaline Phosphatase Troponin I High Sens Total Protein Albumin Globulin Albumin/Globulin Ratio Lipase Vitamin B12 Folate Procalcitonin 0.84 H TSH Urine Color Urine Appearance Urine pH Ur Specific [place] Urine Protein Urine Glucose (UA) Urine Ketones Urine Blood Urine Nitrite Urine Bilirubin Urine Urobilinogen Ur Leukocyte Esterase Urine WBC (Auto) Urine RBC (Auto) U Hyaline Cast (Auto) U Epithel Cells (Auto) Urine Bacteria (Auto) Ethyl Alcohol mg/dL SARS-CoV-2 (PCR) NEGATIVE Influenza Type A (PCR) Negative Influenza Type B (PCR) Negative RSV (RT-PCR) Negative Staphylococcus sp PCR DETECTED A Staph aureus (PCR) DETECTED A mecA/C & MREJ Resist Gene MRSA Not Detected Bld Cult ID Panel PCR See PCR Comment 08/28/22 08/28/22 08/28/22 20:43 20:43 22:36 WBC RBC Hgb Hct MCV MCH MCHC RDW Std Deviation RDW Coeff of Memo Plt Count MPV Immature Gran % (Auto) Neut % (Auto) Lymph % (Auto) [place] % (Auto) Eos % (Auto) Baso % (Auto) Reticulocyte % (Auto) Neut # (Auto) Lymph # (Auto) [place] # (Auto) Eos # (Auto) Baso # (Auto) Reticulocyte # Immature Gran # (Auto) PT INR APTT PTT Ratio Sodium Potassium Chloride Carbon Dioxide Anion Gap BUN Creatinine Est Cr Clr Drug Dosing Est GFR ( Amer) Est GFR (Non-Af Amer) BUN/Creatinine Ratio Glucose Estimat Average Glucose Hemoglobin A1c Osmolality 271 L Calcium Magnesium Iron Transferrin Ferritin Total Bilirubin AST ALT Alkaline Phosphatase Troponin I High Sens Total Protein Albumin Globulin Albumin/Globulin Ratio Lipase 28 Vitamin B12 Folate Procalcitonin TSH Urine Color Yellow Urine Appearance Clear Urine pH 6.0 Ur Specific [place] 1.005 Urine Protein Negative Urine Glucose (UA) Negative Urine Ketones Negative Urine Blood 2+ H Urine Nitrite Negative Urine Bilirubin Negative Urine Urobilinogen Negative Ur Leukocyte Esterase Trace H Urine WBC (Auto) 0 Urine RBC (Auto) 0-4 U Hyaline Cast (Auto) 0 U Epithel Cells (Auto) 20-30 H Urine Bacteria (Auto) Negative Ethyl Alcohol mg/dL SARS-CoV-2 (PCR) Influenza Type A (PCR) Influenza Type B (PCR) RSV (RT-PCR) Staphylococcus sp PCR Staph aureus (PCR) mecA/C & MREJ Resist Gene Bld Cult ID Panel PCR 08/28/22 08/28/22 08/28/22 23:41 23:41 23:41 WBC RBC Hgb Hct MCV MCH MCHC RDW Std Deviation RDW Coeff of Memo Plt Count MPV Immature Gran % (Auto) Neut % (Auto) Lymph % (Auto) [place] % (Auto) Eos % (Auto) Baso % (Auto) Reticulocyte % (Auto) Neut # (Auto) Lymph # (Auto) [place] # (Auto) Eos # (Auto) Baso # (Auto) Reticulocyte # Immature Gran # (Auto) PT INR APTT PTT Ratio Sodium Potassium Chloride Carbon Dioxide Anion Gap BUN Creatinine Est Cr Clr Drug Dosing Est GFR ( Amer) Est GFR (Non-Af Amer) BUN/Creatinine Ratio Glucose Estimat Average Glucose Hemoglobin A1c Osmolality Calcium Magnesium Iron 13 L Transferrin 267 Ferritin 96.5 Total Bilirubin AST ALT Alkaline Phosphatase Troponin I High Sens Total Protein Albumin Globulin Albumin/Globulin Ratio Lipase Vitamin B12 615 Folate 16.72 Procalcitonin TSH 1.103 Urine Color Urine Appearance Urine pH Ur Specific [place] Urine Protein Urine Glucose (UA) Urine Ketones Urine Blood Urine Nitrite Urine Bilirubin Urine Urobilinogen Ur Leukocyte Esterase Urine WBC (Auto) Urine RBC (Auto) U Hyaline Cast (Auto) U Epithel Cells (Auto) Urine Bacteria (Auto) Ethyl Alcohol mg/dL SARS-CoV-2 (PCR) Influenza Type A (PCR) Influenza Type B (PCR) RSV (RT-PCR) Staphylococcus sp PCR Staph aureus (PCR) mecA/C & MREJ Resist Gene Bld Cult ID Panel PCR 08/28/22 08/28/22 08/29/22 23:41 23:41 06:38 WBC 5.85 RBC 3.15 L Hgb 8.3 L Hct 24.7 L MCV 78.4 L MCH 26.3 MCHC 33.6 RDW Std Deviation 42.2 RDW Coeff of Memo 14.6 H Plt Count 202 MPV 9.1 L Immature Gran % (Auto) 1.4 Neut % (Auto) 76.5 Lymph % (Auto) 10.8 [place] % (Auto) 11.1 Eos % (Auto) 0.0 Baso % (Auto) 0.2 Reticulocyte % (Auto) 1.4 Neut # (Auto) 4.48 Lymph # (Auto) 0.63 L [place] # (Auto) 0.65 Eos # (Auto) 0.00 Baso # (Auto) 0.01 Reticulocyte # 0.05 Immature Gran # (Auto) 0.08 H PT INR APTT PTT Ratio Sodium Potassium Chloride Carbon Dioxide Anion Gap BUN Creatinine Est Cr Clr Drug Dosing Est GFR ( Amer) Est GFR (Non-Af Amer) BUN/Creatinine Ratio Glucose Estimat Average Glucose Hemoglobin A1c Osmolality Calcium Magnesium Iron Transferrin Ferritin Total Bilirubin AST ALT Alkaline Phosphatase Troponin I High Sens Total Protein Albumin Globulin Albumin/Globulin Ratio Lipase Vitamin B12 Folate Procalcitonin TSH Urine Color Urine Appearance Urine pH Ur Specific [place] Urine Protein Urine Glucose (UA) Urine Ketones Urine Blood Urine Nitrite Urine Bilirubin Urine Urobilinogen Ur Leukocyte Esterase Urine WBC (Auto) Urine RBC (Auto) U Hyaline Cast (Auto) U Epithel Cells (Auto) Urine Bacteria (Auto) Ethyl Alcohol mg/dL < 10.0 SARS-CoV-2 (PCR) Influenza Type A (PCR) Influenza Type B (PCR) RSV (RT-PCR) Staphylococcus sp PCR Staph aureus (PCR) mecA/C & MREJ Resist Gene Bld Cult ID Panel PCR 08/29/22 08/29/22 06:38 06:38 WBC RBC Hgb Hct MCV MCH MCHC RDW Std Deviation RDW Coeff of Memo Plt Count MPV Immature Gran % (Auto) Neut % (Auto) Lymph % (Auto) [place] % (Auto) Eos % (Auto) Baso % (Auto) Reticulocyte % (Auto) Neut # (Auto) Lymph # (Auto) [place] # (Auto) Eos # (Auto) Baso # (Auto) Reticulocyte # Immature Gran # (Auto) PT INR APTT PTT Ratio Sodium 130 L Potassium 3.7 Chloride 100 Carbon Dioxide 24 Anion Gap 6 BUN 14 Creatinine 0.54 L Est Cr Clr Drug Dosing 158.6 Est GFR ( Amer) 142.7 Est GFR (Non-Af Amer) 123.1 BUN/Creatinine Ratio 25.9 H Glucose 116 H Estimat Average Glucose 108 Hemoglobin A1c 5.4 Osmolality Calcium 7.9 L Magnesium Iron Transferrin Ferritin Total Bilirubin 1.1 H AST 113 H ALT 118 H Alkaline Phosphatase 161 H Troponin I High Sens Total Protein 6.2 Albumin 3.0 L Globulin 3.2 Albumin/Globulin Ratio 0.9 Lipase Vitamin B12 Folate Procalcitonin TSH Urine Color Urine Appearance Urine pH Ur Specific [place] Urine Protein Urine Glucose (UA) Urine Ketones Urine Blood Urine Nitrite Urine Bilirubin Urine Urobilinogen Ur Leukocyte Esterase Urine WBC (Auto) Urine RBC (Auto) U Hyaline Cast (Auto) U Epithel Cells (Auto) Urine Bacteria (Auto) Ethyl Alcohol mg/dL SARS-CoV-2 (PCR) Influenza Type A (PCR) Influenza Type B (PCR) RSV (RT-PCR) Staphylococcus sp PCR Staph aureus (PCR) mecA/C & MREJ Resist Gene Bld Cult ID Panel PCR ECG Additional Comments: EKG: Normal sinus rhythm with normal tracing at 87 bpm
[2022-08-29] MEDS ORDERED: OPTIRAY 300 500mL IV ONE (12:22)
--- NOTE | 2022-08-29 12:44 | CT Scan Report ---
CT angio head wo/w HISTORY: 32 years-old Female CVA tiny acute infarcts of the left parietal lobe COMPARISON: Brain MRI of same day at 2:17 AM, head CT 08/28/2022 TECHNIQUE: CTA of the head was obtained both with and without the use of 119 mL Optiray. 3-D coronal and sagittal MIPS were obtained from the axial data set and were submitted for review. All measuremen ts were obtained according to NASCET criteria. A dose lowering technique was used consistent with the principals of SANDRINE. FINDINGS: CT HEAD: No acute intracranial hemorrhage, midline shift, hydrocephalus, intracranial mass or acute territori al infarct. The tiny acute infarcts of the left parietal lobe seen on MRI are not visualized by CT. N o acute calvarial fracture. Mastoid air cells and middle ear cavities are clear. CTA: No aneurysm, dissection, high-grade stenosis or arterial occlusion. Cerebral venous sinuses are paten t. No abnormal enhancement. IMPRESSION: 1. No acute intracranial abnormality identified. 2. The tiny acute infarcts of the left parietal lobe seen on MRI are not visualized by CT. 3. Unremarkable CTA of the head. ACT 112: Negative or not required by law. The above report was generated using voice recognition software. It may contain grammatical, syntax o r spelling errors. Electronically signed by: Tyrell Rios M.D. 08/29/2022 12:43 PM
--- NOTE | 2022-08-29 12:44 | CT Scan Report ---
CT ANGIOGRAPHY OF THE NECK WITH CONTRAST CLINICAL HISTORY: Cerebrovascular accident. COMPARISON STUDY: No previous studies for comparison. Technique: CT angiography of the carotid and vertebral arteries was obtained using Optiray and 3D rec onstruction on an independent workstation. NASCET criteria was utilized. Automated exposure control was utilized for the study. A dose lowering technique was utilized adhering to the principles of ALA RA. Findings: Note is made of multiple ill-defined nodular opacities within the lung apices. A few of the se may have early cavitation. These are predominantly subpleural in location. No cervical lymphadenop athy is present. The bilateral common carotid, cervical internal carotid and vertebral arteries are p atent. There is no dissection or stenosis within these vessels. There is no aneurysm within the neck. CTA of the head will be reported separately. The right vertebral artery is dominant. IMPRESSION: 1. No stenosis or dissection within the bilateral common carotid, cervical internal carotid or verteb ral arteries. 2. Multiple nodular opacities within the lung apices, several of which have adjacent ground glass opa city and possible early cavitation. These favor septic emboli. ACT 112: Negative or not required by law. Electronically signed by: Berto Garcia M.D. 08/29/2022 12:42 PM
--- NOTE | 2022-08-29 13:46 | Hospitalist Progress Note ---
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 Findings consistent with multi valvular involvement of endocarditis, possible myocardial seeding. The posterior mitral leaflet is thickened with visualized moderate sized vegetation on the ventricular side, greater than 0.5 cm. The myocardium adjacent to the leaflet and the posterior lateral wall appears abnormal as well. There is moderate thickening of the anterior mitral valve leaflet. A mobile mass consistent with vegetation is visible on the tricuspid valve. Cannot exclude aortic valve vegetation. No perivalvular abscesses visualized on transthoracic study. All valves appear competent. Left ventricle systolic function is normal. EF is 60 to 65%. Trace mitral regurgitation. Trace tricuspid regurgitation. -- Plan to repeat blood cultures tomorrow Appreciate cardiology input Continue vancomycin, cefepime Consulted infectious disease Will need ARABELLA for further evaluation Obtain records from [facility] Needs to be transferred to tertiary [facility] for further evaluation Discussed with Chad Bingham for possible transfer, patient was declined. Acute CVA: Likely septic emboli --MRI Brain:Punctate foci of restricted diffusion left parietal lobe compatible with acute subcortical infarcts. No evidence of hemorrhage. --Head CTA:No acute intracranial abnormality identified. The tiny acute infarcts of the left parietal lobe seen on MRI are not visualized by CT. Unremarkable CTA of the head. --Neck CTA: No stenosis or dissection within the bilateral common carotid, cervical internal carotid or vertebral arteries. Multiple nodular opacities within the lung apices, several of which have adjacent ground glass opacity and possible early cavitation. These favor septic emboli. --ECHO as above -- Continue neuro checks --Speech, PT OT evaluation --Neurology consulted Left lower extremity swelling Suspected abscess --CT Left LE:Findings are concerning for abscess versus less likely hematoma in the anterior proximal leg. Diffuse soft tissue stranding is nonspecific but may possibly represent cellulitis. Correlation with physical exam is recommended. The bones are intact. --Venous Doppler:No evidence of deep venous thrombus. 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 Procalcitonin 0.84 Negative COVID screen Continue antibiotics as above Transaminitis Likely due to infection Monitor Avoid hepatotoxic agents as able Consider liver USD Microcytic Anemia Low serum iron Normal folate, vitamin B12 Unknown baseline Monitor DVT Px: Lovenox SQ Code Status Full code Disposition To be determined Admission and Anticipated Discharge Date Admission Date: August 29, 2022 Subjective Patient is seen and examined at bedside States having generalized ache predominantly left shoulder, back Also reports headache Denies any chest pain, dyspnea, dizziness, nausea, abdominal pain Discussed with cardiology, neurology and orthopedics today Offers no other complaints Review of Systems Review of Systems: All systems reviewed & are unremarkable except as noted in Subjective Physical Exam Physical Exam: Physical Exam: Vitals signs as noted above General Appearance:Moderately built and nourished, no apparent distress, ill appearing Head: normocephalic, Atraumatic Eyes: normal inspection, EOMI Neck: supple, Trachea midline Respiratory/Chest: Normal breath sounds, CTA, No accessory muscle use Cardiovascular: S1, S2, No murmur Abdomen/GI:Soft, Non tender, Bowel sounds present Extremities/Musculoskeletal:normal inspection, LLE edema Neurologic/Psych:AAOX3, grossly no focal neurological deficits Skin: normal color, warm Results & Data Results & Data ([facility]) Vital Signs (Past 12 Hours) Vital Signs Temp Pulse Pulse Resp BP Pulse Ox O2 Del Method 08/29/22 12:03 38.5 C H 97 H 16 128/75 94 Room Air 08/29/22 08:01 37.1 C 96 H 16 106/70 97 Room Air 08/29/22 07:07 101 H 08/29/22 04:23 39.1 C H 111 H 18 111/68 94 Room Air 08/29/22 03:11 105 H 08/29/22 03:13 39.5 C H 92 H 18 123/76 96 08/29/22 02:19 72 20 99 Room Air Laboratory Results Short CBC 08/28/22 08/29/22 Range/Units 20:37 06:38 WBC 7.75 5.85 (4.8-10.8) K/ul Hgb 9.7 L 8.3 L (12.0-16.0) g/dl Hct 29.1 L 24.7 L (34.1-44.9) % Plt Count 278 202 (130-400) K/uL BMP 08/28/22 08/29/22 20:37 06:38 Sodium 129 L 130 L Potassium 3.9 3.7 Chloride 95 L 100 Carbon Dioxide 25 24 BUN 18 14 Creatinine 0.72 0.54 L Glucose 120 H 116 H Calcium 8.8 7.9 L Liver Function 08/28/22 08/29/22 Range/Units 20:37 06:38 Total Bilirubin 0.9 1.1 H (0.2-1.0) mg/dl AST 149 H 113 H (13-39) U/L ALT 141 H 118 H (7-52) U/L Alkaline Phosphatase 182 H 161 H (34-104) U/L Albumin 3.5 3.0 L (3.4-5.0) gm/dl Urine 08/28/22 Range/Units 22:36 Urine Color Yellow Urine Appearance Clear (Clear) Urine pH 6.0 (4.5-7.5) Ur Specific [place] 1.005 (1.000-1.030) Urine Protein Negative (Negative) Urine Glucose (UA) Negative (Negative)
[2022-08-29 15:01] LABS: Pregnancy Test, Urine Negative (Negative)
[2022-08-29] MEDS: hydrOXYzine HCl 25 MG TAB PO PRN (15:53)
--- NOTE | 2022-08-29 16:42 | Orthopedic Consultation ---
Date of Consultation August 29, 2022 Assessment & Plan (1) Abscess of extremity: Nonspecific fluid collection pretibial area. Could be resolving hematoma and seroma. Not clearly an abscess. Awaiting definitive MRI reading. If has very small abscess such as this may respond to nonsurgical treatment and on appropriate antibiotics with cefepime and vancomycin should cover staph species. Allow regular diet today. Keep n.p.o. until MRI reading obtained tomorrow and reevaluate tomorrow. History of Present Illness Reason for Consultation: Pretibial swelling history of infection Attending Physician: Rory Rivas MD History of Present Illness 32-year-old female who transferred to this area for rehabilitation. History of drug use. See H&P for pertinent information. Apparently had a leg infection and history of endocarditis Allergies Allergy/AdvReac Type Severity Reaction Status Date / Time No Known Allergies Allergy Unverified 08/28/22 22:06 Home Medications Medication Instructions Recorded Confirmed Type acetaminophen 500 mg capsule 1,000 mg PO Q8 PRN as directed 08/28/22 08/28/22 History (Mapap (acetaminophen)) buprenorphine 8 mg-naloxone 2 mg 1 film buccal TID 08/28/22 08/28/22 History sublingual film (Suboxone) clonidine HCl 0.1 mg tablet 0.1 mg PO TID PRN as directed 08/28/22 08/28/22 History diphenhydramine HCl 25 mg capsule 25 mg PO Q8 PRN as directed 08/28/22 08/28/22 History (Banophen) hydroxyzine HCl 25 mg tablet 25 mg PO TID PRN as directed 08/28/22 08/28/22 History multivitamin 1 tab PO DAILY 08/28/22 08/28/22 History naloxone 4 mg/actuation nasal spray 4 mg intranasal UD PRN over dose 08/28/22 08/28/22 History nicotine 21 mg/24 hr daily 21 mg transdermal UD 08/28/22 08/28/22 History transdermal patch Patient History Medical History Endocarditis Polysubstance abuse Social History Smoking Status: Former smoker Smoking End Date: 1 week ago; Hx Alcohol Use: Yes (last drink a year ago) Hx Substance Use: Yes Last Used Substance: Days (ago) Last Used Substance Other:: 08/24/2022 Substance Use Type Other:: fentanyl Preferred Language: Khmer Communication Ability: Effective Golf Course Superintendent Required: No Beliefs That Will Affect Care: None Current Living Situation: Homeless Other Information That Helps Us Care for You: No Feels Safe at Home: Yes Safety Concerns: Feels Safe At This Time Assistive Devices: None Review of Systems Review of Systems: Patient was having back pain and this prevented her from getting full MRI studies on her left leg. Currently does not have any pain in her left leg. Physical Exam Physical Exam: There is about a 2 cm diamer area of swelling without erythema in the pretibial metaphyseal area of the tibia. This area is completely nonten carlos. There is no drainage. There is no knee effusion stable ligaments full range of motion of the knee without pain. There is no periosteal tenderness along the medial tibia full length of the tibia. There is some very subtle possible fluctuation in the swollen area which is completely nontender. Results & Data ([facility]) Vital Signs (Past 12 Hours) Vital Signs Temp Pulse Pulse Resp BP Pulse Ox O2 Del Method 08/29/22 15:55 36.7 C 93 H 18 115/80 96 Room Air 08/29/22 13:51 37.0 C 96 H 18 117/73 95 Room Air 08/29/22 12:03 38.5 C H 97 H 16 128/75 94 Room Air 08/29/22 08:01 37.1 C 96 H 16 106/70 97 Room Air 08/29/22 07:07 101 H Laboratory Results White blood cell count normal. Diagnostic Findings CT scan demonstrates 2 x 0.8 possible fluid collection pretibial area. MRI had limited studies and full series could not be completed. I do not see an obvious fluid collection and no clearance of any osteomyelitis but the reading from radiology is pending.
--- NOTE | 2022-08-29 16:42 | Consultation Report ---
DATE OF SERVICE: 08/29/2022 REASON FOR CONSULTATION: Infarct seen on MRI of the brain. HISTORY OF PRESENT ILLNESS: The patient is a 32-year-old right-handed female who is an IV drug abuser, admitted through [facility]. Last month, the patient noted fevers, chills, nausea and left leg swelling. The patient was seen at a local hospital in [facility] and then transferred to [facility] for management of a left leg infection. She was told she had endocarditis. She signed out against medical advice after 5 days; therefore, did not complete treatment for infective endocarditis. Most recently, she checked herself into a local detox facility in [place]. She was transferred yesterday to [facility] for long-term detox. The patient was noted to be febrile on admission. The patient felt generally unwell. She had a mild headache, some mild stiffness of her neck. She did not note any change in vision, double vision, numbness on the face or body, new weakness or new numbness. There was no chest pain, palpitations, or shortness of breath. She was febrile on arrival at our facility, she received IV vancomycin and vancomycin and cefepime in the Emergency Room. PAST MEDICAL HISTORY: As above. She denies a history of stroke, transient ischemic attack, DVT, PE, rheumatic fever, murmur. PAST SURGICAL HISTORY: Cholecystectomy. FAMILY HISTORY: Diabetes, heart disease. No family history of early vascular disease. The patient has 2 children. SOCIAL HISTORY: Recent IV drug abuse until admission to detox. Former smoker, remote alcohol use. The patient is homeless. MEDICINES: Presumably from inpatient detox were Tylenol, Suboxone, clonidine, diphenhydramine, hydroxyzine, multiple vitamin, Narcan as needed, nicotine patch. She denied home meds prior to the admission to detox. LABORATORY AND DIAGNOSTIC DATA: White count on admission was 7.75, H and H 9.7/21, platelet count 278. PTT 36.9. Sodium 129, chloride 95, BUN and creatinine 18/0.72. Nonfasting glucose 120, osmolality 271. Calcium normal. Iron 13, which is low. Transaminases; AST 149, ALT 141, alkaline phosphatase 162. Troponin 17.7. Procalcitonin 0.84. Urinalysis notable for 2+ blood, trace leukocyte esterase, 20-30 epithelial cells. Urine negative. Urine osmolality 224. Ethyl alcohol negative. Blood culture is notable for Staphylococcus species. Blood cultures positive for gram-positive cocci in clusters. Head CT noncontrast showed no acute abnormality. MRI of the brain showed a few punctate foci of restricted diffusion in the left parietal lobe consistent with acute infarcts. There is no reported enhancement. CTA of head and neck, which I have reviewed, showed no acute abnormality identified. No aneurysm, dissection, high-grade stenosis or arterial occlusion. Venous sinuses are patent. CTA of the neck showed no stenosis within the bilateral common carotid, cervical internal carotid or vertebral arteries. Multiple nodular opacities within the lung apex, some of which have adjacent ground-glass opacity and possible early cavitation favoring septic emboli. EKG: Normal sinus rhythm. Echocardiogram sinus and sinus tachycardia. Findings consistent with multivalvular involvement of endocarditis, possible myocardial seeding. The posterior mitral leaflet is thickened with moderate- sized vegetation on the ventricular side. Mobile mass consistent with vegetation is visible on the tricuspid valve, cannot exclude aortic valve vegetation. All valves appear competent. PHYSICAL EXAMINATION: The patient is awake and alert. When I saw the patient, temperature was 38.5, 97, 128/75, respirations 16, 94%. The patient appeared febrile and very marginally diaphoretic. She was oriented x3, without right/left confusion. Repetition, naming and 3-step commands were normal. The precordium was hyperdynamic, but I did not appreciate a murmur. There were no carotid bruits. No calf swelling or tenderness. I did not appreciate any peripheral embolic phenomenon in her toes or fingers. Pupils are equal, round, reactive to light. Grossly, the optic nerves looked normal. There are normal holley, motility, facial sensation, and facial symmetry. Speech was normal. There is a mild flattening of the right nasolabial fold. Motor: There may be some minor decrease in right oyster sorter strength. Otherwise, strength was full. There were equal rapid alternating movements. [id number] and [id number] were normal. Sensation is intact to light touch. Reflexes are symmetric. Toes are downgoing. Gait was not tested. Neck was supple, although patient reported pain on neck flexion. 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 No evidence of mycotic aneurysm on CTA. Antiplatelet therapy has not been shown to be effective in stroke from bacterial endocarditis and anticoagulant therapy has not been shown to be effective. We would not use either. Would recommend transfer to tertiary care center for further evaluation with infectious disease and cardiology and cardiovascular surgery as to whether or not the patient needs intervention for vegetation on multiple valves. This information was conveyed to Dr. Rivas. Job ID: [id number] MTDD
--- NOTE | 2022-08-29 16:52 | Communication Note ---
Date of Service: August 29, 2022 Reached out to [facility]. currently no bed available at their facility. Refused transfer. Reached out to [place], [place] ([phone]). Waiting for call back.
--- NOTE | 2022-08-29 18:20 | Communication Note ---
Date of Service: August 29, [address]Renato Church, hospitalist at [place], [place]. Plans to discuss with CT surgery and will make a decision regar ding accepting the patient. Currently waiting for call back.
--- NOTE | 2022-08-29 20:44 | Magnetic Resonance Report ---
MRI LEFT TIBIA AND FIBULA WITHOUT IV CONTRAST CLINICAL HISTORY: Pretibial abscess. COMPARISON STUDY: CT scan of the left tibia and fibula dated 08/29/2022. TECHNIQUE: MRI of the left tibia and fibula was initiated. Axial T1, sagittal proton density and STIR , and coronal T1 and STIR sequences were obtained. The patient declined further imaging and IV contra st. The acquired sequences are modestly degraded by motion artifact. FINDINGS: Normal marrow signal intensity is maintained throughout the left tibia and fibula. There is no marrow change on the acquired sequences to suggest osteomyelitis. There is edema and mild inflamm ation within the proximal pretibial soft tissues. A tiny pocket of fluid is again seen in the pretibi al tissues deep to the marker at the site of interest. This measures approximately 1.8 x 0.7 cm. No a dditional fluid collections are suggested on the acquired sequences. The regional musculature is norm al in bulk and signal intensity. The knee and ankle joints are grossly maintained but not well evalua abhi. The Achilles tendon is intact as visualized. IMPRESSION: 1. Incomplete examination, as the patient could not tolerate further imaging. 2. There is no MRI evidence of osteomyelitis involving left tibia or fibula on the acquired sequences . 3. Pretibial soft tissue induration and a small pocket of fluid are seen proximally. This likely repr esents a tiny abscess when correlated with today's CT scan. Dictated: 08/29/2022 3:42 PM Transcribed: 08/29/2022 3:56 PM Macie [id number] SRIKANTH_Piedad Electronically signed by: Salvatore Caban M.D. 08/29/2022 8:43 PM
--- NOTE | 2022-08-29 22:52 | Electrocardiogram Report ---
Test Reason : Blood Pressure : / mmHG Vent. Rate : 087 BPM Atrial Rate : 087 BPM P-R Int : 140 ms QRS Dur : 084 ms QT Int : 368 ms P-R-T Axes : 018 029 021 degrees QTc Int : 442 ms Normal sinus rhythm Normal ECG No previous ECGs available Confirmed by Jose Ortega ([id number]) on 08/29/2022 10:52:02 PM Referred By: REFERRED SELF Confirmed By:Jose Ortega
[2022-08-29] MEDS ORDERED: MELATONIN 3 MG TAB PO PRN (23:02)
[2022-08-30] MEDS ORDERED: IBUPROFEN 200 MG TAB PO ONE (02:22)
[2022-08-30] MEDS ORDERED: IBUPROFEN 200 MG TAB PO STA (03:54)
[2022-08-30] MEDS ORDERED: VANCOMYCIN LEVEL ONE (05:30)
[2022-08-30 06:13] LABS: Basophils # (auto) 0.01 K/uL (0-0.2); Basophils % (auto) 0.2 %; Eosinophils # (auto) 0.06 K/uL (0-0.50); Eosinophils % (auto) 0.9 %; Hematocrit (blood only) 24.6 % (34.1-44.9); Hemoglobin 8.1 g/dl (12.0-16.0); Immature Granulocytes # (auto) 0.07 K/uL (0.00-0.02); Immature Granulocytes % (auto) 1.1 %; Lymphocytes # (auto) 0.99 K/uL (1.2-3.4); Lymphocytes % (auto) 15.3 %; Mean Corpuscular Hemoglobin 26.5 pg (25.0-34.0); Mean Corpuscular Hgb Conc 32.9 g/dL (32.0-36.0); Mean Corpuscular Volume 80.4 fL (80.0-100.0); Mean Platelet Volume 9.5 fL (9.4-12.3); Monocytes % (auto) 10.9 %; Neutrophils # (auto) 4.62 K/uL (1.4-6.5); Neutrophils % (auto) 71.6 %; Platelet Count 263 K/uL (130-400); RDW Coefficient of Variation 14.6 % (11.5-14.5); RDW Standard Deviation 42.6 fL (36.4-46.3); Red Blood Count 3.06 M/uL (3.93-5.22); White Blood Count 6.45 K/ul (4.8-10.8)
[2022-08-30] MEDS: LACTATED RINGER'S 1,000 ML IV SCH (06:38)
[2022-08-30] MEDS: CEFEPIME 2,000 MG in SYRINGE 0 ML IV SCH ×2 (06:38→15:23)
[2022-08-30 06:43] LABS: Albumin Globulin Ratio 0.8 (0.9-2); Albumin Level 2.9 gm/dl (3.4-5.0); Bilirubin,Total 0.6 mg/dl (0.2-1.0); Calcium 8.4 mg/dl (8.5-10.1); Chol HDL Ratio 9.5 (0-5); Creatinine Clr Calc Pharmacy 171.3 ml/min; Est GFR (African American) 146.4 ml/min; Est GFR (Non-African American) 126.3 ml/min; Globulin 3.5 gm/dl (2.5-4.0); Magnesium 2.1 mg/dl (1.7-2.4); Potassium 3.6 mmol/L (3.5-5.1); Total Protein 6.4 gm/dl (6.0-8.3)
[2022-08-30] MEDS ORDERED: VANCOMYCIN HCL 1,500 MG in SODIUM CHLORIDE 0.9% 500 ML IV ONE (07:30)
[2022-08-30] MEDS: VANCOMYCIN HCL 1,000 MG in SODIUM CHLORIDE 0.9% 250 ML IV SCH (08:01)
[2022-08-30] MEDS: BUPRENORPHINE/NALOXONE 8/2 MG TAB SL SCH ×3 (08:24→20:21)
[2022-08-30] MEDS: hydrOXYzine HCl 25 MG TAB PO PRN (08:24)
[2022-08-30] MEDS: ACETAMINOPHEN 325 MG TAB PO PRN ×2 (08:24→15:17)
[2022-08-30] MEDS: MULTIVITAMIN TAB PO SCH (10:22)
[2022-08-30] MEDS: FERROUS SULFATE 325 MG TAB PO SCH (10:22)
--- NOTE | 2022-08-30 14:13 | Progress Notes ---
DATE OF SERVICE: 08/30/2022 SUBJECTIVE: I am seeing the patient in followup of an embolic-appearing left MCA infarction, likely related to septic emboli from bacterial endocarditis. The patient's CTA of head and neck did not leon w any evidence of a mycotic aneurysm. She has no new symptoms; headache has improved today. T-max was 38.5 yesterday, but she has been afebrile today. Blood cultures were positive for Staph species. OBJECTIVE: 109/65, 69, 16, 36.5. The patient is awake and alert. Speech and language are normal. Affect appropriate. There is normal extraocular motility, visual holley, facial symmetry. Speech is not dysarthric. Repetition, naming, 3-step commands are normal. Maybe marginal weakness of right g rip strength, but there is no drift and there is equal rapid alternating movements. Lower extremitie s are full. Reflexes are symmetric. Toes are downgoing. IMPRESSION AND PLAN: Presumed septic emboli to the left middle cerebral artery related to valvular v egetations from endocarditis. Continue antibiotic therapy. Antiplatelet agents and anticoagulants ar e not indicated at present. My understanding is that the patient is going to be transferred to a [facility] for further evaluation by cardiovascular. We will sign off. Job ID: [id number]
--- NOTE | 2022-08-30 14:14 | Hospitalist Progress Note ---
Date of Service August 30, 2022 Assessment & Plan (1) Hyponatremia: Plan: Infective endocarditis Suspected septic emboli Bacteremia --Blood Culture: 03/05: Staph species --Repeat Blood cultures:pending --ECHO: Rhythm is sinus and sinus tachycardia during study. Findings consistent with multi valvular involvement of endocarditis, possible myocardial seeding. The posterior mitral leaflet is thickened with visualized moderate sized vegetation on the ventricular side, greater than 0.5 cm. The myocardium adjacent to the leaflet and the posterior lateral wall appears abnormal as well. There is moderate thickening of the anterior mitral valve leaflet. A mobile mass consistent with vegetation is visible on the tricuspid valve. Cannot exclude aortic valve vegetation. No perivalvular abscesses visualized on transthoracic study. All valves appear competent. Left ventricle systolic function is normal. EF is 60 to 65%. Trace mitral regurgitation. Trace tricuspid regurgitation. Appreciate cardiology input Continue vancomycin, cefepime>>Cefepime Consulted infectious disease Will need ARABELLA for further evaluation Obtain records from [facility] Needs to be transferred to tertiary [facility] for further evaluation Discussed with Chad Bingham for possible transfer, patient was declined. Reached out to [facility], currently no bed available at their facility. Discussed with CT surgery Dr.Julie Ayoub at [facility] [place] who accepted the patient for further eval. Waiting for bed availability/transfer Acute CVA: Likely septic emboli --MRI Brain:Punctate foci of restricted diffusion left parietal lobe compatible with acute subcortical infarcts. No evidence of hemorrhage. --Head CTA:No acute intracranial abnormality identified. The tiny acute infarcts of the left parietal lobe seen on MRI are not visualized by CT. Unremarkable CTA of the head. --Neck CTA: No stenosis or dissection within the bilateral common carotid, cervical internal carotid or vertebral arteries. Multiple nodular opacities within the lung apices, several of which have adjacent ground glass opacity and possible early cavitation. These favor septic emboli. --ECHO as above -- Continue neuro checks --Speech, PT OT evaluation --Appreciate Neurology Input Left lower extremity swelling Suspected abscess --CT Left LE:Findings are concerning for abscess versus less likely hematoma in the anterior proximal leg. Diffuse soft tissue stranding is nonspecific but may possibly represent cellulitis. Correlation with physical exam is recommended. The bones are intact. --Venous Doppler:No evidence of deep venous thrombus. --MRI:. Incomplete examination, as the patient could not tolerate further imaging. There is no MRI evidence of osteomyelitis involving left tibia or fibula on the acquired sequences. Pretibial soft tissue induration and a small pocket of fluid are seen proximally. This likely represents a tiny abscess when correlated with today's CT scan. -- Continue antibiotics as above Appreciate Orthopedics Input H/O IV drug use Admits to using fentanyl, heroin Currently on Suboxone general counsel to quit Hyponatremia Unknown baseline Sodium 130>132 Monitor Possible Multifocal Pneumonia/Septic Emboli CXR:Bilateral mixed interstitial and alveolar opacities are suggestive of multifocal pneumonia. Procalcitonin 0.84 Negative COVID screen Continue antibiotics as above Transaminitis Likely due to infection Monitor Avoid hepatotoxic agents as able Consider liver USD Microcytic Anemia Low serum iron Normal folate, vitamin B12 Unknown baseline Monitor DVT Px: Lovenox SQ Code Status Full code Disposition [place] [place] when bed [facility] Admission and Anticipated Discharge Date Admission Date: August 29, 2022 Subjective Patient is seen and examined at bedside States having pleuritic chest discomfort with cough and deep breaths No other complaints Denies any chest pain, dyspnea, dizziness, nausea, abdominal pain Plan to discharge to [facility] when bed available Review of Systems Review of Systems: All systems reviewed & are unremarkable except as noted in Subjective Physical Exam Physical Exam: Physical Exam: Vitals signs as noted above General Appearance:Moderately built and nourished, no apparent distress, ill appearing Head: normocephalic, Atraumatic Eyes: normal inspection, EOMI Neck: supple, Trachea midline Respiratory/Chest: Normal breath sounds, CTA, No accessory muscle use Cardiovascular: S1, S2, No murmur Abdomen/GI:Soft, Non tender, Bowel sounds present Extremities/Musculoskeletal:normal inspection, LLE Trace edema Neurologic/Psych:AAOX3, grossly no focal neurological deficits Skin: normal color, warm Results & Data Results & [facility] Vital Signs (Past 12 Hours) Vital Signs Temp Pulse Pulse Resp BP Pulse Ox O2 Del Method 08/30/22 11:00 36.5 C 69 16 109/65 95 08/30/22 08:00 69 08/30/22 08:00 36.8 C 87 18 135/76 98 08/30/22 04:09 36.9 C 87 18 121/79 95 Room Air Laboratory Results Short CBC 08/30/22 Range/Units 05:24 WBC 6.45 (4.8-10.8) K/ul Hgb 8.1 L (12.0-16.0) g/dl Hct 24.6 L (34.1-44.9) % Plt Count 263 (130-400) K/uL BMP 08/30/22 05:24 Sodium 132 L Potassium 3.6 Chloride 100 Carbon Dioxide 24 BUN 14 Creatinine 0.50 L Glucose 92 Calcium 8.4 L Liver Function 08/30/22 Range/Units 05:24 Total Bilirubin 0.6 D (0.2-1.0) mg/dl AST 150 H (13-39) U/L ALT 133 H (7-52) U/L Alkaline Phosphatase 153 H (34-104) U/L Albumin 2.9 L (3.4-5.0) gm/dl
--- NOTE | 2022-08-30 14:48 | Cardiology Progress Note ---
Date of Service August 30, 2022 Assessment & Plan (1) Endocarditis: Plan Patient is an acutely ill 32-year-old female recently diagnosed with endocarditis with incomplete treatment who presents with symptoms of systemic emboli, pulmonary venous and arterial. Chest x-ray consistent with septic emboli, peripheral abscess left leg, subacute stroke on MRI. Positive blood cultures for gram-positive cocci. Patient appropriately treated with IV antibiotics. 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 Valvular structures appeared initially competent Recommendations: Would recommend tertiary care evaluation. Will need ARABELLA to fully assess and records obtained from initial hospitalization Patient awaiting tertiary transfer. We will follow serial EKGs maintain telemetry. Patient on appropriate IV antibiotics for endocarditis, staph spe cies Exam and history reflect systemic infection, septic emboli Admission and Anticipated Discharge Date Admission Date: August 29, 2022 Subjective Patient seen and examined, chart telemetry reviewed. No arrhythmias noted. Patient appears less ill today but still fatigued, leg pain. Occasional disconjugate gaze Review of Systems Review of Systems: All systems reviewed & are unremarkable except as noted in Subjective Physical Exam Constitutional: + ill appearing Eyes: PERRL, conjunctivae normal, anicteric sclerae ENMT: external ear and nose normal, oropharynx normal Neck: trachea midline, no thyromegaly Gastrointestinal (Abdomen): Inspection/Auscultation: abdomen not distended Percussion/Palpation: + abdomen tender (Mild tenderness without guarding) and abdomen soft Neurologic: PERRL, EOMI, accommodation nl, no face palsy, no dysarthria Results & Data ([facility]) Vital Signs (Past 12 Hours) Vital Signs Temp Pulse Pulse Resp BP Pulse Ox O2 Del Method 08/30/22 11:00 36.5 C 69 16 109/65 95 08/30/22 08:00 69 08/30/22 08:00 36.8 C 87 18 135/76 98 08/30/22 04:09 36.9 C 87 18 121/79 95 Room Air Laboratory Results Laboratory Results - last 24 hr 08/29/22 08/29/22 08/29/22 14:25 14:25 14:25 WBC RBC Hgb Hct MCV MCH MCHC RDW Std Deviation RDW Coeff of Memo Plt Count MPV Immature Gran % (Auto) Neut % (Auto) Lymph % (Auto) Weber % (Auto) Eos % (Auto) Baso % (Auto) Neut # (Auto) Lymph # (Auto) Weber # (Auto) Eos # (Auto) Baso # (Auto) Immature Gran # (Auto) Sodium Potassium Chloride Carbon Dioxide Anion Gap BUN Creatinine Est Cr Clr Drug Dosing Est GFR ( Amer) Est GFR (Non-Af Amer) BUN/Creatinine Ratio Glucose Calcium Magnesium Total Bilirubin AST ALT Alkaline Phosphatase Total Protein Albumin Globulin Albumin/Globulin Ratio Triglycerides Cholesterol LDL Cholesterol, Calc VLDL Cholesterol, Calc HDL Cholesterol Cholesterol/HDL Ratio Urine Osmolality 224 L Ur Random Sodium 35 Urine Test Negative Nasal Screen MRSA (PCR) Vancomycin Trough 08/30/22 08/30/22 08/30/22 05:24 05:24 05:24 WBC 6.45 RBC 3.06 L Hgb 8.1 L Hct 24.6 L MCV 80.4 MCH 26.5 MCHC 32.9 RDW Std Deviation 42.6 RDW Coeff of Memo 14.6 H Plt Count 263 MPV 9.5 Immature Gran % (Auto) 1.1 Neut % (Auto) 71.6 Lymph % (Auto) 15.3 Weber % (Auto) 10.9 Eos % (Auto) 0.9 Baso % (Auto) 0.2 Neut # (Auto) 4.62 Lymph # (Auto) 0.99 L Weber # (Auto) 0.70 Eos # (Auto) 0.06 Baso # (Auto) 0.01 Immature Gran # (Auto) 0.07 H Sodium 132 L Potassium 3.6 Chloride 100 Carbon Dioxide 24 Anion Gap 8 BUN 14 Creatinine 0.50 L Est Cr Clr Drug Dosing 171.3 Est GFR ( Amer) 146.4 Est GFR (Non-Af Amer) 126.3 BUN/Creatinine Ratio 28.0 H Glucose 92 Calcium 8.4 L Magnesium 2.1 Total Bilirubin 0.6 D AST 150 H ALT 133 H Alkaline Phosphatase 153 H Total Protein 6.4 Albumin 2.9 L Globulin 3.5 Albumin/Globulin Ratio 0.8 L Triglycerides 213 H Cholesterol 124 LDL Cholesterol, Calc 68 VLDL Cholesterol, Calc 43 H HDL Cholesterol 13 Cholesterol/HDL Ratio 9.5 H Urine Osmolality Ur Random Sodium Urine Test Nasal Screen MRSA (PCR) Vancomycin Trough 8.8 L 08/30/22 08:30 WBC RBC Hgb Hct MCV MCH MCHC RDW Std Deviation RDW Coeff of Memo Plt Count MPV Immature Gran % (Auto) Neut % (Auto) Lymph % (Auto) Weber % (Auto) Eos % (Auto) Baso % (Auto) Neut # (Auto) Lymph # (Auto) Weber # (Auto) Eos # (Auto) Baso # (Auto) Immature Gran # (Auto) Sodium Potassium Chloride Carbon Dioxide Anion Gap BUN Creatinine Est Cr Clr Drug Dosing Est GFR ( Amer) Est GFR (Non-Af Amer) BUN/Creatinine Ratio Glucose Calcium Magnesium Total Bilirubin AST ALT Alkaline Phosphatase Total Protein Albumin Globulin Albumin/Globulin Ratio Triglycerides Cholesterol LDL Cholesterol, Calc VLDL Cholesterol, Calc HDL Cholesterol Cholesterol/HDL Ratio Urine Osmolality Ur Random Sodium Urine Test Nasal Screen MRSA (PCR) Negative Vancomycin Trough
[2022-08-30] MEDS ORDERED: ceFAZolin 2000MG 2,000 MG/15 ML SYR IV SCH (16:00)
[2022-08-30] MEDS ORDERED: VANCOMYCIN HCL 1,500 MG in SODIUM CHLORIDE 0.9% 500 ML IV SCH (16:00)
--- NOTE | 2022-08-30 16:25 | Communication Note ---
Date of Service: August 30, [address] Layton. Patient was unable to tolerated full study however limited study shows no evidence of osteomyelitis. Very small fluid collection likely abscess. Would recommend continued antibiotics, no surgical intervention required at this time. Please let us know if you have any questions. Ortho will sign off.
[2022-08-30] MEDS ORDERED: ACETAMINOPHEN 1,000 MG in EMPTY BAG 0 ML IV PRN (18:12)
[2022-08-30] MEDS ORDERED: ACETAMINOPHEN 1000 MG/100 ML IV IV ONE (18:16)
--- NOTE | 2022-08-30 18:42 | XRay Report ---
XR chest 1V portable CLINICAL HISTORY: Chest pain. COMPARISON STUDY: Chest radiograph August 28, 2022. FINDINGS: There is no pneumothorax. Mild enlargement of the cardiac silhouette is noted. There are po ssible small bilateral pleural effusions. Multifocal airspace opacities within the lungs are again no abhi. These have slightly progressed. No evidence for pulmonary edema. IMPRESSION: 1. Progression of multifocal airspace opacities within the lungs consistent with an infectious proces s. 2. Mild enlargement of the cardiac silhouette. 3. Suspected small bilateral pleural effusions. ACT 112: Negative or not required by law. Electronically signed by: Berto Garcia M.D. 08/30/2022 6:40 PM
--- NOTE | 2022-08-31 09:18 | Discharge Summary ---
Date of Service August 31, 2022 Admission HPI Per Admitting Provider History obtained from patient and records. Medical history significant for opiate abuse currently on Suboxone. Patient is a resident of [place], [place] arrived in town yesterday for long-term detox at [facility]. Last month, patient noted fever, chills, nausea, left leg swelling. Patient consulted local ER at [place], [place]. Patient transferred to [facility] for management of left leg infection. Patient was told she also had endocarditis. Patient signed out AGAINST MEDICAL ADVICE after 5 days of confinement because her pain was not being managed well and she had started to detox. Patient later checked herself to a local detox facility in [place]. She was transferred to the local [facility] for addiction yesterday for long-term detox. Patient noted to be febrile upon arrival at facility. Patient denies chest pain, SOB, cough symptoms. No abdominal pain, no diarrhea, dysuria symptoms. Denies black/bloody stools. Patient admits to heavy menses. Patient with achy headache and left shoulder pain the last 2 days. Poor appetite. Patient denies alcohol abuse. Tolerable left lower leg discomfort. Patient sent to the ER for evaluation. Patient received IV Vancomycin and Cefepime at the ER. Medical History as above Surgical History : Cholecystectomy Family History : DM, heart disease Personal/Social history : Non-smoker, no EtOH intake, unemployed Admission Exam Per Admitting Provider GENERAL: Slight uncomfortable, no respiratory distress SKIN: Pallor, warm HEENT: Bespectacled, pale palpebral conjunctivae, no ptosis, dry buccal mucosa NECK : Supple, no tenderness CHEST : CTA, no tenderness HEART : RRR, no obvious murmurs ABDOMEN: Some distention, nontender EXTREMITIES : LLE swelling, no tenderness, no other conspicuous deformities noted NEUROLOGIC : Coherent, no facial asymmetry, no other gross focality Principal Diagnosis Infective endocarditis Suspected septic emboli Staph. Bacteremia Presumed septic emboli to the left middle cerebral artery Possible Left lower extremity abscess H/O IV drug use Hyponatremia Transaminitis Microcytic Anemia Discharge Data Allergies Allergy/AdvReac Type Severity Reaction Status Date / Time No Known Allergies Allergy Unverified 08/28/22 22:06 Consultations 08/28/22 22:23 ED Decision to Admit Stat 08/29/22 01:38 Consult Orthopedic Surgery Routine 08/29/22 03:27 HIM [Consult Health Information Management] Routine 08/29/22 09:08 Consult Neurology Routine 08/29/22 09:09 Consult Cardiology Routine 08/29/22 15:28 Consult Infectious Diseases Routine 08/29/22 19:51 Burn CD for patient Stat Procedures Performed Laboratory Results WBC 6.45 K/ul (4.8-10.8) 08/30/22 05:24 RBC 3.06 M/uL (3.93-5.22) L 08/30/22 05:24 Hgb 8.1 g/dl (12.0-16.0) L 08/30/22 05:24 Hct 24.6 % (34.1-44.9) L 08/30/22 05:24 MCV 80.4 fL (80.0-100.0) 08/30/22 05:24 MCH 26.5 pg (25.0-34.0) 08/30/22 05:24 MCHC 32.9 g/dL (32.0-36.0) 08/30/22 05:24 RDW Std Deviation 42.6 fL (36.4-46.3) 08/30/22 05:24 RDW Coeff of Memo 14.6 % (11.5-14.5) H 08/30/22 05:24 Plt Count 263 K/uL (130-400) 08/30/22 05:24 MPV 9.5 fL (9.4-12.3) 08/30/22 05:24 Immature Gran % (Auto) 1.1 % 08/30/22 05:24 Neut % (Auto) 71.6 % 08/30/22 05:24 Lymph % (Auto) 15.3 % 08/30/22 05:24 Marion % (Auto) 10.9 % 08/30/22 05:24 Eos % (Auto) 0.9 % 08/30/22 05:24 Baso % (Auto) 0.2 % 08/30/22 05:24 Reticulocyte % (Auto) 1.4 % (0.5-2.0) 08/28/22 23:41 Neut # (Auto) 4.62 K/uL (1.4-6.5) 08/30/22 05:24 Lymph # (Auto) 0.99 K/uL (1.2-3.4) L 08/30/22 05:24 Marion # (Auto) 0.70 K/uL (0.24-0.82) 08/30/22 05:24 Eos # (Auto) 0.06 K/uL (0-0.50) 08/30/22 05:24 Baso # (Auto) 0.01 K/uL (0-0.2) 08/30/22 05:24 Reticulocyte # 0.05 10^6/uL (0.02-0.10) 08/28/22 23:41 Immature Gran # (Auto) 0.07 K/uL (0.00-0.02) H 08/30/22 05:24 PT 11.4 Seconds (9.0-12.0) 08/28/22 20:37 INR 1.1 (0.9-1.1) 08/28/22 20:37 APTT 36.9 Seconds (21.0-31.0) H 08/28/22 20:37 PTT Ratio 1.3 08/28/22 20:37 Sodium 132 mmol/L (136-145) L 08/30/22 05:24 Potassium 3.6 mmol/L (3.5-5.1) 08/30/22 05:24 Chloride 100 mmol/L (98-107) 08/30/22 05:24 Carbon Dioxide 24 mmol/L (21-32) 08/30/22 05:24 Anion Gap 8 (3-11) 08/30/22 05:24 BUN 14 mg/dl (6-23) 08/30/22 05:24 Creatinine 0.50 mg/dl (0.6-1.2) L 08/30/22 05:24 Est Cr Clr Drug Dosing 171.3 ml/min 08/30/22 05:24 Est GFR ( Amer) 146.4 ml/min 08/30/22 05:24 Est GFR (Non-Af Amer) 126.3 ml/min 08/30/22 05:24 BUN/Creatinine Ratio 28.0 (10-20) H 08/30/22 05:24 Glucose 92 mg/dl (70-99(Fasting)) 08/30/22 05:24 Estimat Average Glucose 108 mg/dl 08/29/22 06:38 Hemoglobin A1c 5.4 % (4.5-5.6) 08/29/22 06:38 Osmolality 271 mOsm/kg (280-300) L 08/28/22 20:43 Calcium 8.4 mg/dl (8.5-10.1) L 08/30/22 05:24 Magnesium 2.1 mg/dl (1.7-2.4) 08/30/22 05:24 Iron 13 mcg/dl (35-150) L 08/28/22 23:41 Transferrin 267 mg/dl (200-360) 08/28/22 23:41 Ferritin 96.5 ng/ml (8-388) 08/28/22 23:41 Total Bilirubin 0.6 mg/dl (0.2-1.0) D 08/30/22 05:24 AST 150 U/L (13-39) H 08/30/22 05:24 ALT 133 U/L (7-52) H 08/30/22 05:24 Alkaline Phosphatase 153 U/L (34-104) H 08/30/22 05:24 Troponin I High Sens 51.2 pg/ml (0-14) H* D 08/30/22 18:31 Total Protein 6.4 gm/dl (6.0-8.3) 08/30/22 05:24 Albumin 2.9 gm/dl (3.4-5.0) L 08/30/22 05:24 Globulin 3.5 gm/dl (2.5-4.0) 08/30/22 05:24 Albumin/Globulin Ratio 0.8 (0.9-2) L 08/30/22 05:24 Triglycerides 213 mg/dl (0-150) H 08/30/22 05:24 Cholesterol 124 mg/dl (0-200) 08/30/22 05:24 LDL Cholesterol, Calc 68 mg/dl 08/30/22 05:24 VLDL Cholesterol, Calc 43 mg/dl (0-30) H 08/30/22 05:24 HDL Cholesterol 13 mg/dl 08/30/22 05:24 Cholesterol/HDL Ratio 9.5 (0-5) H 08/30/22 05:24 Lipase 28 U/L (11-82) 08/28/22 20:43 Vitamin B12 615 pg/ml (180-914) 08/28/22 23:41 Folate 16.72 ng/ml (>5.38) 08/28/22 23:41 Procalcitonin 0.84 ng/ml (0-0.5) H 08/28/22 20:37 TSH 1.103 uIu/ml (0.300-4.500) 08/28/22 23:41 Urine Color Yellow 08/28/22 22:36 Urine Appearance Clear (Clear) 08/28/22 22:36 Urine pH 6.0 (4.5-7.5) 08/28/22 22:36 Ur Specific [place] 1.005 (1.000-1.030) 08/28/22 22:36 Urine Protein Negative (Negative) 08/28/22 22:36 Urine Glucose (UA) Negative (Negative) 08/28/22 22:36 Urine Ketones Negative (Negative) 08/28/22 22:36 Urine Blood 2+ (Negative) H 08/28/22 22:36 Urine Nitrite Negative (Negative) 08/28/22 22:36 Urine Bilirubin Negative (Negative) 08/28/22 22:36 Urine Urobilinogen Negative (Negative) 08/28/22 22:36 Ur Leukocyte Esterase Trace (Negative) H 08/28/22 22:36 Urine WBC (Auto) 0 /hpf (0-5) 08/28/22 22:36 Urine RBC (Auto) 0-4 /hpf (0-4) 08/28/22 22:36 U Hyaline Cast (Auto) 0 /lpf (0-5) 08/28/22 22:36 U Epithel Cells (Auto) 20-30 /lpf (0-5) H 08/28/22 22:36 Urine Bacteria (Auto) Negative (Negative) 08/28/22 22:36 Urine Osmolality 224 mOsm/kg (500-800) L 08/29/22 14:25 Ur Random Sodium 35 mmol/L 08/29/22 14:25 Urine Test Negative (Negative) 08/29/22 14:25 Nasal Screen MRSA (PCR) Negative (Negative) 08/30/22 08:30 Vancomycin Trough 8.8 mcg/ml (10-20) L 08/30/22 05:24 Ethyl Alcohol mg/dL < 10.0 mg/dl (<10.0) 08/28/22 23:41 SARS-CoV-2 (PCR) NEGATIVE (Negative) 08/28/22 20:37 Influenza Type A (PCR) Negative (Neg) 08/28/22 20:37 Influenza Type B (PCR) Negative (Neg) 08/28/22 20:37 RSV (RT-PCR) Negative (Neg) 08/28/22 20:37 Staphylococcus sp PCR DETECTED (NotDetected) A 08/28/22 20:37 Staph aureus (PCR) DETECTED (NotDetected) A 08/28/22 20:37 mecA/C & MREJ Resist Gene MRSA Not Detected (NotDetected) 08/28/22 20:37 Bld Cult ID Panel PCR See PCR Comment (NotDetected) 08/28/22 20:[address] 08/28/22 23:13 CT OF THE HEAD WITHOUT CONTRAST CLINICAL HISTORY: Headache. COMPARISON STUDY: No previous studies for comparison. CT DOSE: 537.48 mGy.cm TECHNIQUE: Helical axial images of the head were obtained without IV contrast. Automated exposure control was utilized for the study. A dose lowering technique was utilized adhering to the principles of ALARA. FINDINGS: No acute intracranial hemorrhage, midline shift or mass effect is present. The ventricular system is unremarkable. The basal cisterns are patent. No extra-axial collections are present. There are no findings to suggest acute dural sinus thrombosis or acute territorial infarct. No significant calvarial abnormalities are present. Visualized portions of the sinuses and mastoid air cells are clear. IMPRESSION: No acute intracranial findings. ACT 112: Negative or not required by law. Electronically signed by: Berto Garcia M.D. 08/29/2022 7:[address] 08/28/22 23:13 CT tib/fib LT w con CLINICAL HISTORY: LLE lump/pain TECHNIQUE: Multidetector row helical CT of the left tibia and fibula was performed without intravenous contrast. Coronal and sagittal reformations were obtained. Automated dose lowering techniques and/or adjustment according to p atient size were utilized for this examination. CT DOSE: 399.37 mGy.cm Comparison: None available at the time of this dictation. FINDINGS: There is a rim-enhancing soft tissue collection in the anterior tibia measuring 2.0 x 0.8 cm with surrounding fatty stranding. The joint spaces are maintained. No fracture is seen. Mild soft tissue stranding is seen in the distal tibia. IMPRESSION: Findings are concerning for abscess versus less likely hematoma in the anterior proximal leg. Diffuse soft tissue stranding is nonspecific but may possibly represent cellulitis. Correlation with physical exam is recommended. The bones are intact. ACT 112: Negative or not required by law. Electronically signed by: Brad Melendez M.D. 08/29/2022 8:43 AM Shoulder X-Ray 08/28/22 23:13 XR shoulder LT min 2V routine CLINICAL HISTORY: Left shoulder pain. No recent trauma. COMPARISON: None FINDINGS: Incidental note is made of airspace opacities within the left lung. These were noted on prior chest radiograph. Alignment of the left shoulder is anatomic. There is no acute fracture. No suspicious osseous lesion. There is mild acromioclavicular joint osteoarthritis. IMPRESSION: 1. No acute fracture or dislocation within the left shoulder. 2. Mild left acromioclavicular joint osteoarthritis. 3. Left lung airspace opacities which favor an infectious process. ACT 112: Negative or not required by law. Electronically signed by: Berto Garcia M.D. 08/29/2022 7:36 AM Brain MRI 08/29/22 01:38 MR brain wo/w con CLINICAL HISTORY: hobbs TECHNIQUE: Multiplanar and multisequence MR images of the brain were obtained prior to and following administration of gadolinium contrast. Comparison: Comparison is made to CT head 08/28/2022 FINDINGS: There are a few punctate foci of restricted diffusion in the left parietal lobe compatible with acute infarcts. The white matter is unremarkable. The ventric ular system is normal in appearance. No mass or abnormal enhancement is seen. There is no mass effect or midline shift. There is no evidence of acute intraparenchymal hemorrhage. No extra axial fluid collections are seen. The corpus callosum, pituitary gland, and cerebellar tonsils appear grossly unremarkable. Flow voids of the major intracranial arterial vessels are identified. The imaged portions of the paranasal sinuses, mastoid air cells, and orbits are unremarkable. IMPRESSION: Punctate foci of restricted diffusion left parietal lobe compatible with acute subcortical infarcts. No evidence of hemorrhage. ACT 112: Negative or not required by law. Electronically signed by: Brad Melendez M.D. 08/29/2022 8:59 AM Venous Doppler Study 08/29/22 05:34 US venous doppler LE BI CLINICAL HISTORY: LLE swelling TECHNIQUE: Bilateral lower extremity real-time compression venous ultrasound with Color Doppler imaging. Utilizing real-time ultrasonic imaging multiple real time high-resolution ultrasonic images with compression and noncompression maneuvers of the deep venous system in addition to color doppler imaging were performed from the common femoral vein through the proximal calf veins. COMPARISON: None available at the time of this dictation. FINDINGS: Currently there is normal compressibility of the deep venous system from the common femoral vein through the proximal calf veins. No superficial venous thrombosis is identified. Impression: No evidence of deep venous thrombus. ACT 112: Negative or not required by law. Electronically signed by: Brad Melendez M.D. 08/29/2022 7:05 AM Head CTA 08/29/22 10:25 CT angio head wo/w HISTORY: 32 years-old Female CVA tiny acute infarcts of the left parietal lobe COMPARISON: Brain MRI of same day at 2:17 AM, head CT 08/28/2022 TECHNIQUE: CTA of the head was obtained both with and without the use of 119 mL Optiray. 3-D coronal and sagittal MIPS were obtained from the axial data set and were submitted for review. All measurements were obtained according to NASCET criteria. A dose lowering technique was used consistent with the principals of SANDRINE. FINDINGS: CT HEAD: No acute intracranial hemorrhage, midline shift, hydrocephalus, intracranial mass or acute territorial infarct. The tiny acute infarcts of the left parietal lobe seen on MRI are not visualized by CT. No acute calvarial fracture. Mastoid air cells and middle ear cavities are clear. CTA: No aneurysm, dissection, high-grade stenosis or arterial occlusion. Cerebral ve nous sinuses are patent. No abnormal enhancement. IMPRESSION: 1. No acute intracranial abnormality identified. 2. The tiny acute infarcts of the left parietal lobe seen on MRI are not visualized by CT. 3. Unremarkable CTA of the head. ACT 112: Negative or not required by law. The above report was generated using voice recognition software. It may contain grammatical, syntax or spelling errors. Electronically signed by: Tyrell Rios M.D. 08/29/2022 12:43 PM Lower Extremity MRI 08/29/22 10:25 MRI LEFT TIBIA AND FIBULA WITHOUT IV CONTRAST CLINICAL HISTORY: Pretibial abscess. COMPARISON STUDY: CT scan of the left tibia and fibula dated 08/29/2022. TECHNIQUE: MRI of the left tibia and fibula was initiated. Axial T1, sagittal proton density and STIR, and coronal T1 and STIR sequences were obtained. The patient declined further imaging and IV contrast. The acquired sequences are modestly degraded by motion artifact. FINDINGS: Normal marrow signal intensity is maintained throughout the left tibia and fibula. There is no marrow change on the acquired sequences to suggest osteomyelitis. There is edema and mild inflammation within the proximal pretibial soft tissues. A tiny pocket of fluid is again seen in the pretibial tissues deep to the marker at the site of interest. This measures approximately 1.8 x 0.7 cm. No additional fluid collections are suggested on the acquired sequences. The regional musculature is normal in bulk and signal intensity. The knee and ankle joints are grossly maintained but not well evaluated. The Ach illes tendon is intact as visualized. IMPRESSION: 1. Incomplete examination, as the patient could not tolerate further imaging. 2. There is no MRI evidence of osteomyelitis involving left tibia or fibula on the acquired sequences. 3. Pretibial soft tissue induration and a small pocket of fluid are seen proximally. This likely represents a tiny abscess when correlated with today's CT scan. Dictated: 08/29/2022 3:42 PM Transcribed: 08/29/2022 3:56 PM Macie [id number] [facility] Electronically signed by: Salvatore Caban M.D. 08/29/2022 8:43 PM Neck CTA 08/29/22 10:25 CT ANGIOGRAPHY OF THE NECK WITH CONTRAST CLINICAL HISTORY: Cerebrovascular accident. COMPARISON STUDY: No previous studies for comparison. Technique: CT angiography of the carotid and vertebral arteries was obtained using Optiray and 3D reconstruction on an independent workstation. NASCET criteria was utilized. Automated exposure control was utilized for the study. A dose lowering technique was utilized adhering to the principles of ALARA. Findings: Note is made of multiple ill-defined nodular opacities within the lung apices. A few of these may have early cavitation. These are predominantly subpleural in location. No cervical lymphadenopathy is present. The bilateral common carotid, cervical internal carotid and vertebral arteries are patent. There is no dissection or stenosis within these vessels. There is no aneurysm within the neck. CTA of the head will be reported separately. The right vertebral artery is dominant. IMPRESSION: 1. No stenosis or dissection within the bilateral common carotid, cervical internal carotid or vertebral arteries. 2. Multiple nodular opacities within the lung apices, several of which have adjacent ground glass opacity and possible early cavitation. These favor septic emboli. ACT 112: Negative or not required by law. Electronically signed by: Berto Garcia M.D. 08/29/2022 12:42 PM Chest X-Ray 08/30/22 18:11 XR chest 1V portable CLINICAL HISTORY: Chest pain. COMPARISON STUDY: Chest radiograph August 28, 2022. FINDINGS: There is no pneumothorax. Mild enlargement of the cardiac silhouette is noted. There are possible small bilateral pleural effusions. Multifocal airspace opacities within the lungs are again noted. These have slightly progressed. No evidence for pulmonary edema. IMPRESSION: 1. Progression of multifocal airspace opacities within the lungs consistent with an infectious process. 2. Mild enlargement of the cardiac silhouette. 3. Suspected small bilateral pleural effusions. ACT 112: Negative or not required by law. Electronically signed by: Berto Garcia M.D. 08/30/2022 6:40 PM Ordered Studies 08/28/22 23:13 CT head/brain wo con Urgent CT leg [CT tib/fib LT w con] Urgent 08/29/22 01:38 MRI Brain [MR brain wo/w con] Urgent 08/29/22 05:34 US venous doppler LE BI Urgent 08/29/22 10:25 CT angio neck with con Urgent CTA head wo/w [CT angio head wo/w] Urgent MR lower leg LT wo con Urgent Hospital Course (1) Hyponatremia: Infective endocarditis Suspected septic emboli Bacteremia --Blood Culture: 03/05: Staph species --Repeat Blood cultures:pending --ECHO: Rhythm is sinus and sinus tachycardia during study. Findings consistent with multi valvular involvement of endocarditis, possible myocardial seeding. The posterior mitral leaflet is thickened with visualized moderate sized vegetation on the ventricular side, greater than 0.5 cm. The myocardium adjacent to the leaflet and the posterior lateral wall appears abnormal as well. There is moderate thickening of the anterior mitral valve leaflet. A mobile mass consistent with vegetation is visible on the tricuspid valve. Cannot exclude aortic valve vegetation. No perivalvular abscesses visualized on transthoracic study. All valves appear competent. Left ventricle systolic function is normal. EF is 60 to 65%. Trace mitral regurgitation. Trace tricuspid regurgitation. Appreciate cardiology input Continue vancomycin, cefepime>>Cefepime Consulted infectious disease Will need ARABELLA for further evaluation Obtain records from [facility] Needs to be transferred to tertiary [facility] for further evaluation Discussed with Chad Bingham for possible transfer, patient was declined. Reached out to [facility], currently no bed available at their facility. Discussed with CT surgery Dr.Julie Ayoub at [facility], [place] who accepted the patient for further eval. Transferred to tertiary [facility] for further care. Acute CVA: Likely septic emboli --MRI Brain:Punctate foci of restricted diffusion left parietal lobe compatible with acute subcortical infarcts. No evidence of hemorrhage. --Head CTA:No acute intracranial abnormality identified. The tiny acute infarcts of the left parietal lobe seen on MRI are not visualized by CT. Unremarkable CTA of the head. --Neck CTA: No stenosis or dissection within the bilateral common carotid, cervical internal carotid or vertebral arteries. Multiple nodular opacities within the lung apices, several of which have adjacent ground glass opacity and possible early cavitation. These favor septic emboli. --ECHO as above -- Continue neuro checks --Speech, PT OT evaluation --Appreciate Neurology Input Left lower extremity swelling Suspected abscess --CT Left LE:Findings are concerning for abscess versus less likely hematoma in the anterior proximal leg. Diffuse soft tissue stranding is nonspecific but may possibly represent cellulitis. Correlation with physical exam is recommended. The bones are intact. --Venous Doppler:No evidence of deep venous thrombus. --MRI:. Incomplete examination, as the patient could not tolerate further imaging. There is no MRI evidence of osteomyelitis involving left tibia or fibula on the acquired sequences. Pretibial soft tissue induration and a small pocket of fluid are seen proximally. This likely represents a tiny abscess when correlated with today's CT scan. 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 Procalcitonin 0.84 Negative COVID screen Continue antibiotics as above Transaminitis Likely due to infection Monitor Avoid hepatotoxic agents as able Consider liver USD Microcytic Anemia Low serum iron Normal folate, vitamin B12 Unknown baseline Monitor DVT Px: Lovenox SQ Code Status Full code Disposition [facility] [place] Total Time Total Time Spent Total Time Spent (In Minutes): 54 minutes Discharge Plan Discharge Items Patient Disposition: Transfer Acute Care Hospital Reason For Visit: HYPONATREMIA, L LEG ABSCESS Discharge Diagnosis: Infective endocarditis Suspected septic emboli Staph. Bacteremia Presumed septic emboli to the left middle cerebral artery Possible Left lower extremity abscess H/O IV drug use Hyponatremia Transaminitis Microcytic Anemia Activity: Per Instructions section Exercise/Sports: Wait until after follow-up appointment Non-emergency contact: Primary Care Provider, Surgeon and Arranger Assembler Call non-emergency contact if: you have any medication questions, your symptoms worsen, your pain is concerning for you and you have a fever Follow-up/Referrals: PCP,NO [Primary Care Provider] - Diet: Regular Addtl Attending Provider Instructions: [facility] Addtl Sole Inker Provider Instructions: Date of Service: August 30, 2022 Current Inpatient Medications Acetaminophen (Acetaminophen 325 Mg Tab) 325 mg PO Q6H PRN PRN Reason: Mild Pain Stop: 09/27/22 22:52 Last Admin: 08/30/22 15:17 Dose: 325 mg Buprenorphine/Naloxone (Buprenorphine/Naloxone 8/2 Mg Tab) 1 tab SL TID SAHIL Stop: 09/28/22 03:49 Last Admin: 08/30/22 15:17 Dose: 1 tab Ferrous Sulfate (Ferrous Sulfate 325 Mg Tab) 325 mg PO QAM [facility] Stop: 09/28/22 08:59 Last Admin: 08/30/22 10:22 Dose: Not Given Hydroxyzine HCl (Hydroxyzine Hcl 25 Mg Tab) 25 mg PO TID PRN PRN Reason: Anxiety Stop: 09/28/22 03:15 Last Admin: 08/30/22 08:24 Dose: 25 mg Lactated Ringer's (Lr) 1,000 mls @ 80 mls/hr IV .[id number] SAHIL Stop: 09/28/22 05:59 Last Admin: 08/30/22 06:38 Dose: 80 mls/hr Cefazolin Sodium (Ancef 2000mg) 2,000 mg in 15 mls @ 3.75 mls/min IV Q8H SAHIL; Protocol Stop: 10/11/22 15:59 Melatonin (Melatonin 3 Mg Tab) 3 mg PO HS PRN PRN Reason: Sleep Stop: 09/28/22 23:01 Last Admin: 08/29/22 23:47 Dose: 3 mg Multivitamins (Multivitamin Tab) 1 tab PO DAILY SAHIL Stop: 09/28/22 08:59 Last Admin: 08/30/22 10:22 Dose: Not Given Pending Studies at Discharge: No Stand-Alone Forms: My [facility] Skilled Items Patient informed of condition?: Yes DNR: No Discharge Level of Care: Other Communicable Disease: No Discharge Prognosis: Stable Lines: Peripheral IV Urinary Catheter: No Medications and DC Order Prescriptions: Continued multivitamin Tablet 1 tab PO DAILY clonidine HCl 0.1 mg tablet 0.1 mg PO TID PRN (Reason: as directed) diphenhydramine HCl [Banophen] 25 mg capsule 25 mg PO Q8 PRN (Reason: as directed) hydroxyzine HCl 25 mg tablet 25 mg PO TID PRN (Reason: as directed) acetaminophen [Mapap (acetaminophen)] 500 mg capsule 1,000 mg PO Q8 PRN (Reason: as directed) nicotine 21 mg/24 hr patch 24 hour 21 mg transdermal UD naloxone 4 mg/actuation spray,non-aerosol 4 mg INTRANASAL UD PRN (Reason: over dose) buprenorphine-naloxone [Suboxone] 8-2 mg Film 1 film BUCCAL TID Admission Data Admit Date/Time: 08/29/22 01:33 Attending Provider: Rory Rivas Admit Provider: Irving Headley Primary Care Provider: PCP,NO Other Providers: Irving Headley ; Tay Menard ; Sae Adame ; Ren Ellis ; Juliane Danielson Thomas J ; Lizzy Canchola ; Aly Glaser ; Ap Escobar ; Mitch Gonzalez Andrew J. ; Ap Tineo ; Torsten Rojas ; Waylon Layton ; Bebeto Pham ; Lizzy Washington ; [place] ; Candace Olivia ; Fritz Wick ; Marine Cote ; Tyrell Rosas ; Macie Puentes ; Mike Moreno ; Alejandro Fatima ; Cony Bermudez ; Abe Tan I. ; Eddie Zapata II ; Inés Skelton ; Mitch Silvestre ; Vickey Novak ; Esteban Petersen Other Interventions: Discharge Summary Assessment (RN) Last Done: 08/30/22 21:11
--- NOTE | 2022-08-31 17:17 | Electrocardiogram Report ---
Test Reason : Blood Pressure : / mmHG Vent. Rate : 103 BPM Atrial Rate : 103 BPM P-R Int : 154 ms QRS Dur : 078 ms QT Int : 336 ms P-R-T Axes : -01 018 010 degrees QTc Int : 440 ms Sinus tachycardia Possible Septal infarct , age undetermined Abnormal ECG When compared with ECG of 28-AUG-2022 20:25, No significant change was found Confirmed by Jose Otrega ([id number] on 08/31/2022 5:17:17 PM Referred By: REFERRED SELF Confirmed By:Jose Ortega
== END 2022-08-30 21:05 | disposition short-term general hospital (02) | DRG 871 ==
LOC: ED 19:17 → 2N 08-29 01:33 → 2S 08-29 13:37
DX: L02.416 Cutaneous abscess of left lower limb; D50.9 Iron deficiency anemia, unspecified; Z90.49 Acquired absence of other specified parts of digestive tract; R74.01 Elevation of levels of liver transaminase levels; I76 Septic arterial embolism; R78.81 Bacteremia; J18.9 Pneumonia, unspecified organism; E87.1 Hypo-osmolality and hyponatremia; I63.9 Cerebral infarction, unspecified; B95.61 Methicillin susceptible Staphylococcus aureus infection as the cause of diseases classified elsewhere; I33.0 Acute and subacute infective endocarditis; Z87.891 Personal history of nicotine dependence